=== PATIENT | female | born 1975 | race Caucasian/White ===

== ENCOUNTER → 2025-06-19 | Outpatient (CLI) | payer SELFPAY ==
--- NOTE | 2025-06-19 08:05 | ART_ITS ---
Reason For Study Reason For Study: Bilateral leg pain Procedure A bilateral lower extremity continuous wave Doppler with analog waveform analysis,segmental pressures,and ankle brachial indexes without exercise. Left Segmental Pressures Left brachial= 113mmHg. Left posterior tibial artery = 150mmHg. Left dorsalis pedis artery = 152mmHg. Left digit = 95 mmHg. The left dorsalis pedis waveforms are triphasic. The left posterior tibial artery waveforms are triphasic. Right Segmental Pressures Right brachial= 117mmHg. Right posterior tibial artery = 141mmHg. Right dorsalis pedis artery = 144mmHg. Right digit = 119 mmHg. The right dorsalis pedis waveforms are triphasic. The right posterior tibial artery waveforms are triphasic. Indices The right ankle brachial index by the dorsalis pedis is 1.23. The right ankle brachial index by the posterior tibial artery is 1.21. The right digital-brachial index is 1.02. The left ankle brachial index by the dorsalis pedis is 1.30. The left ankle brachial index by the posterior tibial artery is 1.28. The left digital-brachial index is 0.81. VL/Lower Ext Art Exam w/o Exercis Interpretation Summary Triphasic Doppler waveforms are noted at ankle level bilaterally. Pulse-volume recordings appear satisfactory at all levels bilaterally. Resting ankle-brachial indices are normal bilaterally. Digi tin-brachial indices are normal bilaterally. There is no evidence of significant arterial occlusive disease in the lower ext remities bilaterally. Ordering Physician: Maximino Beard Referring Physician: Jeremiah Cedeño Performed By: Lizbeth Craig RVT
--- NOTE | 2025-06-19 08:06 | VDLE_ITS ---
Reason For Study Reason For Study: Bilateral leg pain RIGHT LEFT GSV is normal. CFV is compressible, spontaneous, phasic, competent, CFV is compressible, spontaneous, phasic, competent and demonstrates normal augmentation. and demonstrates normal augmentation. FV is compressible, spontaneous, phasic, competent FV is compressible, spontaneous, phasic, competent and demonstrates normal augmentation. and demonstrates normal augmentation. POP V is compressible, spontaneous, phasic, competent POP V is compressible, spontaneous, phasic, competent and demonstrates normal augmentation. and demonstrates normal augmentation. T/P Trunk is compressible. T/P Trunk is compressible. PTV is compressible. PTV is compressible. LT PerV is compressible. RT PerV is compressible. SFJ is INCOMPETENT and measures 0.69 cm. Procedure GSV proximal thigh measures 0.79 x 0.76 cm. This is a venous duplex using B-mode, color flow and GSV above knee is INCOMPETENT for greater than 0.5 spectral Doppler. seconds. Exam performed in department. GSV at knee measures 0.16 x 0.17 cm. GSV below knee is competent. INCOMPETENT varicose vein noted at the dist thigh originating from the GSV that extends laterally down to the distal dean where wound is. VL/Venous Duplex US - Anam Extrem Interpretation Summary Deep veins of the lower extremities are bilaterally patent and compressible seg mentally. There is no evidence of deep vein thrombosis on either side. Valvular competence appears intact within the p roximal deep venous systems bilaterally. The great saphenous veins appear bilaterally patent and compressible segmentall y. The left sapheno-femoral junction is incompetent . The left great saphenous vein appears incompetent above the knee. The left great saphenous vein appears competent below the knee. An incompetent varicose vein originates from the left great saphenous vein in the distal thigh and courses distally and laterally across the pretibial surface to within proxi mity of the patient's wound. Ordering Physician: Maximino Beard Referring Physician: Jeremiah Cedeño Performed By: Lizbeth Craig RVT
== END | disposition home or self-care (01) ==
PROVIDERS: PCP Family Medicine; Referring Provider Podiatrist Foot & Ankle Surgery; Visit Provider Podiatrist Foot & Ankle Surgery
DX: M79.605 Pain in left leg (principal); M79.604 Pain in right leg; I73.89 Other specified peripheral vascular diseases
CPT/HCPCS: 93923; 93970

== ENCOUNTER 2025-10-11 06:57 | Day surgery (SDC) | payer OTHER, SELFPAY ==
[2025-10-11 07:19] VITALS: BMI 31.1
--- OUTSIDE RECORDS SUMMARY | 2025-10-11 07:23 | XMS RPT_ITS | CCD ---
Author Organization [facility] Care Team Providers Care [employer] Start Coordinator Name Role Phone LESLIE CUNHA, CATE Guevara Primary Care Physician Sharee CANDELARIO MD Unavailable TUAN NELSON MD Unavailable Sunitha MATHEW MD Unavailable EZ ALLEN MD Unavailable Keysha Zavaleta RN Unavailable Unavailable Unavailable Unavailable BRICE SPENCE MD Admitting Unavailable BRICE SPENCE MD Primary Care Unavailable BRICE SPENCE MD Attending Unavailable VADIM THOMAS Consulting Unavailable PROVIDER, UNKNOWN Consulting Unavailable PROVIDER, UNKNOWN Consulting Unavailable PROVIDER, UNKNOWN Consulting Unavailable TUAN NELSON Admitting Unavailable TUAN NELSON Primary Care Unavailable TUAN NELSON Attending Unavailable CATE NELSON MD Primary Care Unavailable MILAGROS CUNHA, DR ESPINOZA Attending Unavailable CATE NELSON MD Primary Care Unavailable MILAGROS CUNHA, DR ESPINOZA Attending Unavailable SERGIO CUNHA, ADRIANA Consulting Unavailable CATE NELSON MD Primary Care Unavailable CITLALY CUNHA, DR MISHA Beck Admitting Unavailable MARCELINA MITCHELL MD Attending Unavailab CATE Brower MD Consulting Unavailable LAURENT LUNDBERG MD Consulting Unavailable RAMU CUNHA, DR EVERT Milner Consulting Edith BLUNT MD, DR DIONNA Leija Consulting Unavailable CATE NELSON MD Primary Care Unavailable MILAGROS CUNHA, DR ESPINOZA Attending Unavailable Josy Auguste RN Unavailable Unavailable Chirag BILLYM, Dr. Stanton Attending Provider Chirag BILLYM, Dr. Stanton Referring Provider Leslie CUNHA, Dr. Daniels Primary Care Provider Chirag KATZ, Dr. Stanton Attending Physician Leslie CUNHA, Dr. Daniels Primary Care Physician Harvey CUNHA, Dr. Pedro Beck Attending Physician Leslie CUNHA, Dr. Daniels Referring Provider Komal Marquez Attending Physician Tuan Nelson Primary Care Unavailable Tuan Nelson Referring Unavailable Komal Bacon Attending Unavailable Evert Beard Attending Unavailable Evert Beard Referring Unavailable Tuan Nelson Primary Care Unavailable Lacho Salinas Referring Unavailable Tuan Nelson Primary Care Unavailable Lacho Salinas Attending Unavailable Medications Current Medications Medication Drug Class(es) Dates Sig (Normalized) Sig (Original) acetaminophen 650 mg oral tablet (1 source) Start: 04-03-2024 acetaminophen Dose : 650 mg =, Oral, q6hWA, PRN Pain, scale 1-10, 0 Refill(s) Start Date: 04/03/24 Status: Ordered Coenzyme Q10 (H2q Coq10) 200 mg/gram powder (1 source) Start: 07-23-2025 take 1 mg by mouth once Coenzyme Q10 (H2q Coq10) 200 mg/gram powder Active mg PO July 23, 2025 12:00am Complies with drug therapy DAILY MULTIPLE VITAMINS (Oral Tablet) (19 sources) take 1 tablet by mouth once daily DAILY MULTIPLE VITAMINS (Oral Tablet) ; 1 daily Digestive Enzymes capsule (1 source) Start: 07-23-2025 take 1 capsule by mouth once daily at mealtime Digestive Enzymes capsule Active 1 NMA PO daily July 23, 2025 12:00am administer with food; swallow whole; do not crush/chew/dissolve /break/cut Complies with drug therapy Multivitamin tablet (1 source) Start: 07-23-2025 Multivitamin tablet Active 1 {tbl} PO EVERY MORNING July 23, 2025 12:00am Complies with drug therapy Multivitamin With Minerals (One Daily Plus Minerals) tablet (1 source) Start: 07-23-2025 take 1 tablet by mouth once daily Multivitamin With Minerals (One Daily Plus Minerals) tablet Active 1 {tbl} PO ONCE July 23, 2025 12:00am Complies with drug therapy nutraview (1 source) Start: 07-23-2025 nutraview Active PO July 23, 2025 12:00am Complies with drug therapy Damon-3 Fatty Acids 1,000 mg capsule (1 source) Start: 07-23-2025 take 1 capsule by mouth once daily Damon-3 Fatty Acids 1,000 mg capsule Active 1000 mg PO daily July 23, 2025 12:00am Complies with drug therapy pantoprazole 40 mg delayed release oral tablet (1 source) Proton Pump Inhibitor Start: 04-03-2024 pantoprazole 40 mg oral enteric coated tablet Dose : 40 mg = 1 tab(s), Oral, BIDAC, # 60 tab(s), 0 Refill(s), Pharmacy: [facility], 157, cm, 04/01/24 18:58:00 EDT, Height, kg, 04/01/24 18:58:00 EDT, Dosing Weight Start Date: 04/03/24 Status: Ordered saccharomyces boulardii 250 mg oral capsule (1 source) Start: 07-23-2025 take 1 capsule by mouth twice daily Saccharomyces Boulardii (Daily Probiotic (S. Boulardii)) 250 mg capsule Active 250 mg PO TWICE A DAY July 23, 2025 12:00am Complies with drug therapy Completed/Discontinued Medications Medication Drug Class(es) Dates Sig (Normalized) Sig (Original) albuterol 0.83 mg/ml inhalation solution (19 sources) beta2-Adrenergic Agonist Start: 03-03-2013 End: 03-10-2013 ALBUTEROL SULFATE, (2.5 MG/3ML)0.083% (Inhalation Nebulization Solution) ; 1 (one) Ampule(s) every four hours, as needed for 7 days Quantity: 30 {ampule(s)} Refills: 0 Ordered: 10-Mar-2016 MD EZ ALLEN Start: 03-Mar-2013 End: 10-Mar-2013 Status: Inactive Comments: Medication taken as needed. Comment on above: Medication taken as needed. azithromycin 250 mg oral tablet (19 sources) Macrolide Antimicrobial Start: 03-03-2013 End: 03-08-2013 AZITHROMYCIN, 250MG (Oral Tablet) ; 2 x 1 then 1 x 4 Tablet daily for 5 days Quantity: 1 {Tablet} Refills: 0 Ordered: 03-Mar-2013 MD TIFFANY EZ Ingram Start: 03-Mar-2013 End: 08-Mar-2013 Status: Inactive Comments: take two tablets day one and then one tablet daily for 4 daysmeds to be dispensed in office Comment on above: take two tablets day one and then one tablet daily for 4 daysmeds to be dispensed in office cephalexin 500 mg oral capsule (19 sources) Cephalosporin Antibacterial Start: 11-03-2022 End: 11-13-2022 take 1 capsule by mouth three times daily cephALEXin 500 mg oral capsule ; 1 (one) Capsule tid for 10 days Quantity: 40 {Capsule} Refills: 0 Ordered: 03-Nov-2022 MD Sharee CANDELARIO Start: 03-Nov-2022 End: 13-Nov-2022 Status: Inactive codeine phosphate 2 mg/ml / guaiFENesin 20 mg/ml oral solution (19 sources) Opioid Agonist Start: 12-14-2011 End: 12-21-2011 take 1 [tsp_us] by mouth every four hours as needed for cough GUIATUSS AC, 100-10MG/5ML (Oral Syrup) ; 1 (one) tsp every four hours as needed for cough for 7 days Quantity: 4 {oz} Refills: 0 Ordered: 03-Mar-2013 MD Sharee CANDELARIO Start: 14-Dec-2011 End: 21-Dec-2011 Status: Inactive Comments: Medication taken as needed. Comment on above: Medication taken as needed. mupirocin 0.02 mg/mg topical ointment (19 sources) RNA Synthetase Inhibitor Antibacterial Start: 11-03-2022 End: 12-03-2022 mupirocin 2 % topical ointment ; 1 (one) application bid for 30 days Quantity: 15 {Gram} Refills: 0 Ordered: 11-Apr-2024 MD Sharee CANDELARIO Start: 03-Nov-2022 End: 03-Dec-2022 Status: Inactive triamcinolone acetonide 5 mg/ml topical cream (19 sources) Corticosteroid Start: 11-22-2018 End: 12-22-2018 Triamcinolone Acetonide 0.5 % External Cream ; 1 (one) Application daily to bid prn itchiness of leg lesion for 30 days Quantity: 1 {Tube} Refills: 0 Ordered: 16-May-2019 MD Sharee CANDELARIO Start: 22-Nov-2018 End: 22-Dec-2018 Status: Inactive Problems Active Problems Problem Classification Problem Date Documented Date Episodic/Chronic Acute bronchitis (20 sources) Acute bronchitis; Translations: [Acute bronchitis, unspecified] 03-03-2013 Episodic Acute posthemorrhagic anemia (20 sources) Acute posthemorrhagic anemia; Translations: [Acute posthemorrhagic anemia] 04-13-2024 Episodic Administrative/social admission (20 sources) Patient encounter status; Translations: [Counseling, unspecified] 11-22-2018 Episodic Chronic ulcer of skin (3 sources) Ulcer of limb due to chronic venous insufficiency; Translations: [Non-pressure chronic ulcer of skin of other sites with unspecified severity] Onset: 08-31-2025 08-09-2025 Chronic Other connective tissue disease (1 source) Pain in right lower limb; Translations: [Pain in right leg] 07-23-2025 Episodic Other connective tissue disease (1 source) Pain in left lower limb; Translations: [Pain in left leg] 07-23-2025 Episodic Other connective tissue disease (1 source) Pain in right leg; Translations: [Pain in right leg] Onset: 06-25-2025 Episodic Other diseases of veins and lymphatics (19 sources) Venous stasis; Translations: [Other specified disorders of veins] 11-22-2018 Episodic Other diseases of veins and lymphatics (2 sources) Vascular insufficiency; Translations: [Venous insufficiency (chronic) (peripheral)] 08-09-2025 Episodic Comment on above: Venous reflux study 06/20/25:- L SFJ, GSV above knee, and noted varicosity originating from GSV and tracking to location of wound Other diseases of veins and lymphatics (1 source) Venous insufficiency (chronic) (peripheral); Translations: [Venous insufficiency (chronic) (peripheral)] Onset: 08-31-2025 Episodic Peripheral and visceral atherosclerosis (1 source) Peripheral vascular disease; Translations: [Peripheral vascular disease, unspecified] 07-23-2025 Chronic Pneumonia (except that caused by tuberculosis or sexually transmitted disease) (20 sources) Bronchopneumonia; Translations: [Bronchopneumonia, unspecified organism] 12-14-2011 Episodic Skin and subcutaneous tissue infections (19 sources) Cellulitis of face; Translations: [Cellulitis of face] 11-22-2018 Episodic Unclassified (16 sources) LAB DRAW - The labs drawn today include: BMP and CBC. The lab was drawn from the left antecubital vein. The lab was ordered by ___ (Dr. Dionna Blunt). fax #: [phone]. 04-13-2024 Unclassified (10 sources) LAB DRAW - The labs drawn today include: CBC. The lab was drawn from the left antecubital vein. The lab was ordered by ___ (Dr. Blunt). fax #: [phone]. 08-14-2024 Varicose veins of lower extremity (20 sources) Varicose veins of lower extremity; Translations: [Varicose veins of bilateral lower extremities with other complications] 11-03-2022 Episodic Past or Other Problems Problem Classification Problem Date Documented Da te Episodic/Chronic Unclassified (19 sources) open area on left ankle area. - no injury. Open area for 3 weeks. Redness 11-03-2022 Unclassified (19 sources) Rash - The onset of the rash has been acute and has been occurring for 2 days. The rash was first seen on the face (below left eye). There has been associated itching. Note for Rash: Skin is swollen and warm. Here for exam. 11-22-2018 Unclassified (12 sources) Ankle Pain - Symptoms include ankle pain (open area on lateral left ankle), redness and warmth. Onset was 2 month(s) ago (bumped leg with milker bucket). Note for Ankle pain: C/O burning around open area and soreness. 07-08-2018 Unclassified (12 sources) [ADDITIONAL REASON] Immunization - Immunizations discussed with patient/ parent: yes. Note for For immmunization: Not up to date 07-08-2018 Unclassified (19 sources) cough - The onset of the cough has been acute and has been occurring in a persistent pattern for 5 days. The cough is characterized as dry. The symptoms have been associated with sore throat. 03-03-2013 Unclassified (19 sources) cough - The onset of the cough has been sudden and has been occurring in a persistent pattern for 1 week. The course has been increasing. The symptoms have been associated with fever, headache, hoarseness and runny nose. Note for cough: Here for exam. Notes harsh cough at home for last week or so. No NVD. No high fevers at home. 12-14-2011 Unclassified (7 sources) Immunization - Immunizations discussed with patient/ parent: yes. Note for For immmunization: Not up to date 07-08-2018 Unclassified (7 sources) [ADDITIONAL REASON] Ankle Pain - Symptoms include ankle pain (open area on lateral left ankle), redness and warmth. Onset was 2 month(s) ago (bumped leg with milker bucket). Note for Ankle pain: C/O burning around open area and soreness. 07-08-2018 Results Test Name Value Interpretation Reference Range Facility MR/Rylee 08-09-2025 MR/MARIANGEL [facility] Vascular Surgery [address] [place] [address]. [address] [place] [address] OFFICE VISIT Date of Service: 08/09/25 MR#: [id number] Acct: [id number] Name: SAÚLFREEMAN A Rep #: [id number] : 1975 Provider: CARLOS Dyer Age/Sex: 49/F Location: [facility] Status: Signed Intake Vital Signs 08/09/25 08:53 Weight: 179 lb BP 115/68 Blood Pressure Location Lt brachial Position Sitting Respiration 16 Pulse 67 Pulse Source Monitor Temp 98 F Temp Source Temporal Pulse Oximetry (%) 100 Oxygen Delivery Method room air Intake Visit Reasons: Peripheral vascular disease/Rt Leg Pain Chief Complaint: establish care Is patient in pain?: No Allergies No Known Allergies Allergy (Verified 08/09/25 08:55) Medications ???Medication ???Instructions ???Recorded ???Confirmed ???Type Saccharomyces boulardii 250 mg 250 mg PO BID 07/23/25 08/09/25 Hi story capsule (Daily Probiotic (S. boulardii)) coenzyme Q10 200 mg/gram oral mg PO 07/23/25 08/09/25 History powder (H2Q CoQ10) digestive enzymes 1 cap PO QDAY 07/23/25 08/09/25 Hi story multivitamin 1 tab PO QAM 07/23/25 08/09/25 His tory multivitamin with minerals (One 1 tab PO ONCE 07/23/25 08/09/25 Hi story Daily Plus Minerals tablet) nutraview PO 07/23/25 08/09/25 History omega-3 fatty acids 1,000 mg 1,000 mg PO QDAY 07/23/25 08/09/25 History capsule Is last menstrual period known: Yes Post menopausal: No Patient : No Have you fallen in the past year?: No PFSH Medical History (Updated 08/09/25 @ 09:35 by CARLOS Dyer) Ulcer ( 04/2024) PVD (peripheral vascular disease) Pain in right leg Pain in left leg Family History (Updated 08/09/25 @ 08:52 by Cary Beck) Other CVA (cerebral vascular accident) Social History (Updated 08/09/25 @ 08:53 by Cary Beck) Smoking Status: Never smoker HPI HPI HPI: FREEMAN HAYS, is a 49 F who presents to the office today as referred by podiatry Dr. Beard to discuss recent abnormal venous reflux study and LLE ulceration. She had a normal arterial study. She has an ulceration to her anterolateral L ankle; she reports it has been present several months and was unprovoked. She has had several prior similar ulcerations, all in a similar location on her LLE. She does have varicose veins, reports these have been present many years and themselves are not bothersome. She notices only mild edema. She denies any history of prior DVT or venous interventions. She wears tubigrips for compression and has been for the last couple months. She elevates her legs frequently throughout the day and otherwise stays active. ROS General General: No weight change, appetite, fatigue, colon cancer, breast cancer or weakness HEENT HEENT: No difficulty swallowing, eye injury, eye surgery, swollen glands or hoarseness Endo Endocrine: No thyroid disease, diabetes mellitus, thyroid cancer, Hair loss, heat intolerance or cold intolerance Skin Skin: No rash or changing moles Musc Musculoskeletal: No back problems, arthritis, rheumatoid arthritis, gout or joint pain Cardio Cardiovascular: No murmur, pacemaker, heart disease, atrial fibrillation, high blood pressure, heart attack, heart stent, palpitations, shortness of breath with exertion or chest pain Psych Psychiatric: No depression, anxiety or hearing voices Resp Respiratory: No shortness of breath, No sleep apnea, No cough, No COPD, No asthma, No emphysema and No wheezing Gastro Gastrointestinal: No abdominal pain, No nausea or vomiting, No diarrhea, No constipation, No blood in stool, No acid reflux, No hemorrhoids, No ulcers, No gallbladder problem and No black,tarry stools Nehemiah Hematologic: No blood thinners, No blood disorders, No bleeding, No anemia and No blood clots Neuro Neurologic: No system reviewed and no additional complaints, except as documented, No as per HPI, No abnormal gait, No abnormal hearing, No abnormal movements, No abnormal speech, No behavioral changes, No burning sensations, No confusion, No convulsions, No disequilibrium, No dizziness, No localized weakness, No frequent falls, No headache(s), No lack of coordination, No loss of vision, No memory loss, No numbness, No other visual disturbances, No radicular pain, No restless legs, No sensory deficit, No syncope, Yes tingling, No tremor(s), No weakness and No other Exam Const General: cooperative, healthy appearing, comfortable and no acute distress Orientation: alert, awake and oriented x3 HENMT Head: normocephalic and atraumatic Ears: hearing grossly normal bilaterally and external ears normal Nose: external nose normal Eyes General: appearance normal, both eyes and all related structures Neck Neck: normal visual inspectio (more content not included)... Normal [facility] Venous duplex ultrasound rep ortOrdered By: Pedro Gabriel on 06-20-2025 US Vein [facility] [address] [place] [id number] Venous Duplex US - Anam Extrem 06/19/2516 MR#: [id number] Acct: [id number] Name: FREEMAN HAYS Rep #:[id number] : 1975 49 From: Pedro Gabriel MD Attending Dr: Dr. Evert Beard DPM Status: REG CLI Ordering Dr: Evert Beard DPM Date: 06/19/25 Location: [facility] Sex: F C Admitted: Reason For Study Reason For Study: Bilateral leg pain RIGHT LEFT GSV is normal. CFV is compressible, spontaneous, phasic, competent, CFV is compressible, spontaneous, phasic, competent and demonstrates normal augmentation. and demonstrates normal augmentation. FV is compressible, spontaneous, phasic, competent FV is compressible, spontaneous, phasic, competent and demonstrates normal augmentation. and demonstrates normal augmentation. POP V is compressible, spontaneous, phasic, competent POP V is compressible, spontaneous, phasic, competent and demonstrates normal augmentation. and demonstrates normal augmentation. T/P Trunk is compressible. T/P Trunk is compressible. PTV is compressible. PTV is compressible. LT PerV is compressible. RT PerV is compressible. SFJ is INCOMPETENT and measures 0.69 cm. Procedure GSV proximal thigh measures 0.79 x 0.76 cm. This is a venous duplex using B-mode, color flow and GSV above kneeis INCOMPETENT for greater than 0.5 spectral Doppler. seconds. Exam performed in department. GSV at knee measures 0.16 x 0.17 cm. GSV below kneeis competent. INCOMPETENT varicose vein noted at the dist thigh originating from the GSV that extends laterally down to the distal dean where wound is. VL/Venous Duplex US - Anam Extrem Interpretation Summary Deep veins of the lower extremities are bilaterally patent and compressible segmentally. There is no evidence of deep vein thrombosis on either side. Valvular competence appears intact within the proximal deep venous systems bilaterally. The great saphenous veins appear bilaterally patent and compressible segmentally. The left sapheno-femoral junction is incompetent . The left great saphenous vein appears incompetent above the knee. The left great saphenous vein appears competent below the knee. An incompetent varicose vein originates from the left great saphenous vein in the distal thigh and courses distally and laterally across the pretibial surface to within proximity of the patient's wound. Ordering Physician: Evert Beard Referring Physician: Tuan Nelson Performed By: Lizbeth Craig RVT 06/20/25 2844 Date _ Pedro Gabriel MD CC: DPM Dr. Evert Beard; Dr. Tuan Nelson MD ~ Date Dictated: 06/19/25815 Date Transcribed: 06/20/25 1868 Exhauster Engineer: Signed [facility] Other Arterial study reportOrdered By: Pedro Gabriel on 06-19-2025 Noninvasive arteriosclerosis study report [facility] [address] [place] [address] Lower Ext Art Exam w/o Exercis 06/19/25 0808 MR#: [id number] Acct: [id number] Name: FREEMAN HAYS Rep #:[id number] : 1975 49 From: Pedro Gabriel MD Attending Dr: Dr. Evert Beard DPM Status: REG CLI Ordering Dr: Evert Beard DPM Date: 06/19/25 Location: [facility] Sex: F C Admitted: Reason For Study Reason For Study: Bilateral leg pain Procedure A bilateral lower extremity continuous wave Doppler with analog waveform analysis,segmental pressures,and ankle brachial indexes without exercise. Left Segmental Pressures Left brachial= 113mmHg. Left posterior tibial artery = 150mmHg. Left dorsalis pedis artery = 152mmHg. Left digit = 95 mmHg. The left dorsalis pedis waveforms are triphasic. The left posterior tibialartery waveforms are triphasic. Right Segmental Pressures Right brachial= 117mmHg. Right posterior tibial artery = 141mmHg. Right dorsalispedis artery = 144mmHg. Right digit = 119 mmHg. The right dorsalis pedis waveforms are triphasic. The right posterior tibial artery waveforms are triphasic. Indices The right ankle brachial index by the dorsalis pedis is 1.23. The right ankle brachial index by the posterior tibial artery is 1.21. The right digital-brachial index is 1.02. The left ankle brachial index by the dorsalis pedis is 1.30. The left ankle brachial index by the posterior tibial artery is 1.28. The left digital-brachial index is 0.81. VL/Lower Ext Art Exam w/o Exercis Interpretation Summary Triphasic Doppler waveforms are noted at ankle level bilaterally. Pulse-volume recordings appear satisfactory at all levels bilaterally. Resting ankle-brachial indices are normal bilaterally. Digital-brachial indices are normal bilaterally. There is no evidence of significant arterial occlusive disease in the lower extremities bilaterally. Ordering Physician: Evert Beard Referring Physician: Tuan Nelson Performed By: Lizbeth Craig David 06/19/252134 Date _ Pedro Gabriel MD CC: DPM Dr. Evert Beard; Dr. Tuan Nelson MD ~ Date Dictated: 06/19/25807 Date Transcribed: 06/19/252134 Exhauster Engineer: Signed [facility] Other Lower Ext Art Exam w/o Exerc zaira 06-19-2025 Lower Ext Art Exam w/o Exercis [facility] Cardi[facility] [address] [facility] [place] [address] Lower Ext Art Exam w/o Exercis 06/19/25 08 MR#: [id number] Acct: [id number] Name: FREEMAN HAYS Rep #: [id number] : 1975 49 From: Pedro Gabriel MD Attending Dr: Dr. Evert Beard DPM Status: RE G CLI Ordering Dr: Evert Beard DPM Date: 06/19/25 Location: [facility] Sex: F C Admitted: Reason For Study Reason For Study: Bilateral leg pain Procedure A bilateral lower extremity continuous wave Doppler with analog waveform analysis,segmental pressures,and ankle brachial indexes without exercise. Left Segmental Pressures Left brachial= 113mmHg. Left posterior tibial artery = 150mmHg. Left dorsalis pedis artery = 152mmHg. Left digit = 95 mmHg. The left dorsalis pedis waveforms are triphasic. The left posterior tibial artery waveforms are triphasic. Right Segmental Pressures Right brachial= 117mmHg. Right posterior tibial artery = 141mmHg. Right dorsalis pedis artery = 144mmHg. Right digit = 119 mmHg. The right dorsalis pedis waveforms are triphasic. The right posterior tibial artery waveforms are triphasic. Indices The right ankle brachial index by the dorsalis pedis is 1.23. The right ankle brachial index by the posterior tibial artery is 1.21. The right digital-brachial index is 1.02. The left ankle brachial index by the dorsalis pedis is 1.30. The left ankle brachial index by the posterior tibial artery is 1.28. The left digital-brachial index is 0.81. VL/Lower Ext Art Exam w/o Exercis Interpretation Summary Triphasic Doppler waveforms are noted at ankle level bilaterally. Pulse-volume recordings appear satisfactory at all levels bilaterally. Resting ankle-brachial indices are normal bilaterally. Digital-brachial indices are normal bilaterally. There is no evidence of significant arterial occlusive disease in the lower extremities bilaterally. Ordering Physician: Evert Beard Referring Physician: Tuan Nelson Performed By: Lizbeth Craig RVT 06/19/252134 Date Pedro Gabriel MD CC: DPMalu Beard; Dr. Tuan Nelson MD Date Dictated: 06/19/25807 Date Transcribed: 06/19/252134 Exhauster Engineer: Signed [facility] Venous Duplex US - Anam [facility] 06-19-2025 Venous Duplex US - Anam Extrem [facility] [address] [place] [address] Venous Duplex US - Anam Extrem 06/19/25 0816 MR#: [id number] Acct: [id number] Name: FREEMAN HAYS Rep #: [id number] : 1975 49 From: ePdro Gabriel MD Attending Dr: Dr. Evert Beard, DPMalu Status: RE G CLI Ordering Dr: Evert Beard DPMalu Date: 06/19/25 Location: CVS Sex: F C Admitted: Reason For Study Reason For Study: Bilateral leg pain RIGHT LEFT GSV is normal. CFV is compressible, spontaneous, phasic, competent, CFV is compressible, spontaneous, phasic, competent and demonstrates normal augmentation. and demonstrates normal augmentation. FV is compressible, spontaneous, phasic, competent FV is compressible, spontaneous, phasic, competent and demonstrates normal augmentation. and demonstrates normal augmentation. POP V is compressible, spontaneous, phasic, competent POP V is compressible, spontaneous, phasic, competent and demonstrates normal augmentation. and demonstrates normal augmentation. T/P Trunk is compressible. T/P Trunk is compressible. PTV is compressible. PTV is compressible. LT PerV is compressible. RT PerV is compressible. SFJ is INCOMPETENT and measures 0.69 cm. Procedure GSV proximal thigh measures 0.79 x 0.76 cm. This is a venous duplex using B-mode, color flow and GSV above knee is INCOMPETENT for greater than 0.5 spectral Doppler. seconds. Exam performed in department. GSV at knee measures 0.16 x 0.17 cm. GSV below knee is competent. INCOMPETENT varicose vein noted at the dist thigh originating from the GSV that extends laterally down to the distal dean where wound is. VL/Venous Duplex US - Anam Extrem Interpretation Summary Deep veins of the lower extremities are bilaterally patent and compressible segmentally. There is no evidence of deep vein thrombosis on either side. Valvular competence appears intact within the proximal deep venous systems bilaterally. The great saphenous veins appear bilaterally patent and compressible segmentally. The left sapheno- femoral junction is incompetent . The left great saphenous vein appears incompetent above the knee. The left great saphenous vein appears competent below the knee. An incompetent varicose vein originates from the left great saphenous vein in the distal thigh and courses distally and laterally across the pretibial surface to within proximity of the patient's wound. Ordering Physician: Evert Beard Referring Physician: Tuan Nelson Performed By: Lizbeth Craig RVT 06/20/252336 Date Pedro Gabriel MD CC: DPM Dr. Evert Beard; Dr. Tuan Nelson MD Date Dictated: 06/19/25815 Date Transcribed: 06/20/252336 Exhauster Engineer: Signed Normal [facility] - Hematology and Cell countson 08-14-2024 Basophils (Bld) [#/Vol] 0.0 10*3/uL Normal 0.0 - 0.2 {x10E3/uL} [facility]. Work Phone: Basophils/100 WBC (Bld) 0 % Normal [facility]. Work Phone: Eosinophils (Bld) [#/Vol] 0.1 10*3/uL Normal 0.0 - 0.4 {x10E3/uL} [facility]. Work Phone: Eosinophils/100 WBC (Bld) 1 % Normal [facility]; [facility] [employer] [facility] Work Phone: Erythrocyte distribution width (RBC) [Ratio] 13.2 % Normal 11.7 - 15.4 % [facility]; [facility] Work Phone: Hematocrit (Bld) [Volume fraction] 36.8 % Normal 34.0 - 46.6 % [facility]; [facility] [employer] [facility] Work Phone: Hemoglobin (Bld) [Mass/Vol] 11.9 g/dL Normal 11.1 - 15.9 g/dL [facility]; [facility] [employer] [facility] Work Phone: Immature granulocytes (Bld) [#/Vol] 0.0 10*3/uL Normal 0.0 - 0.1 {x10E3/uL} [facility]; [facility] [employer] [facility] Work Phone: Immature granulocytes/100 WBC (Bld) 0 % Normal [facility]; [facility] [employer] [facility] Work Phone: Lymphocytes (Bld) [#/Vol] 1.5 10*3/uL Normal 0.7 - 3.1 {x10E3/uL} [facility]; [facility] [employer] [facility] Work Phone: Lymphocytes/100 WBC (Bld) 27 % Normal [facility]; [facility] [employer] [facility] Work Phone: MCH (RBC) [Entitic mass] 28.2 pg Normal 26.6 - 33.0 pg [facility]; [facility] [employer] [facility] Work Phone: MCHC (RBC) [Mass/Vol] 32.3 g/dL Normal 31.5 - 35.7 g/dL [facility]; [facility]. Work Phone: MCV (RBC) [Entitic vol] 87 fL Normal 79 - 97 fL [facility].; [employer] [facility]. Work Phone: Monocytes (Bld) [#/Vol] 0.5 10*3/uL Normal 0.1 - 0.9 {x10E3/uL} [facility] [employer] [facility].; [employer] [facility] [employer] [facility]. Work Phone: Monocytes/100 WBC (Bld) 10 % Normal [facility] [employer] [facility].; [employer] [facility]. Work Phone: Neutrophils (Bld) [#/Vol] 3.4 10*3/uL Normal 1.4 - 7.0 {x10E3/uL} [facility] [employer].; [employer] [facility]. Work Phone: Neutrophils/100 WBC (Bld) 62 % Normal [facility].; [employer] [facility]. Work Phone: Platelets (Bld) [#/Vol] 246 10*3/uL Normal 150 - 450 {x10E3/uL} [facility] [employer].; [employer] [facility] [employer]. Work Phone: RBC (Bld) [#/Vol] 4.22 10*6/uL Normal 3.77 - 5.2 8 {x10E6/uL} [facility] [employer].; [employer] [facility] [employer], [employer]. Work Phone: WBC (Bld) [#/Vol] 5.5 10*3/uL Normal 3.4 - 10.8 {x10E3/uL} [facility] [employer].; [employer] [facility] [employer] [facility], [employer]. Work Phone: BMP with eGFRon 04-13-2024 AGE 48 years Normal [facility] Comment on above: Performed By: #### 2 15809 #### [facility],[address] [place] [address] Anion gap [Moles/Vol] 11 mmol/L Normal 10 - 2 0 mmol/L [facility].; [facility] Comment on above: Performed By: #### 2 37139 #### [facility],[address] [place] [address] BMP with eGFR Normal [facility] Comment on above: Result Comment: BASI C METABOLIC PANEL Performed By: #### 2 05373 #### [facility],[address] [place] [address] Calcium [Mass/Vol] 8.7 mg/dL Normal 8.5 - 10. 1 mg/dL [facility], [facility].; [facility] Comment on above: Performed By: #### 2 18472 #### [address] [address] Chloride [Moles/Vol] 103 mmol/L Normal 98 - 10 7 mmol/L [facility].; [facility] Comment on above: Performed By: #### 2 26064 #### [address] [address] CO2 [Moles/Vol] 28.4 mmol/L Normal 21.0 - 32.0 mmol/L [facility], [facility].; [facility] Comment on above: Performed By: #### 2 68294 #### [address] [address] Creatinine [Mass/Vol] 0.88 mg/dL Normal 0.55 - 1.02 mg/dL [facility], [facility].; [facility] Comment on above: Performed By: #### 2 51708 #### [address] [address] GFR/1.73 sq M.predicted among non-blacks MDRD (S/P/Bld) [Vol rate/Area] mL/min/{1.73_m2} Normal 60 - 999 [facility] Comment on above: Performed By: #### 2 83408 #### [facility],[address] [place] [address] Result Comment: ACCO RDING TO THE NATIONAL KIDNEY DISEASE EDUCATION PROGRAM(NKDE), A NORMAL eGFR IS A VALUE GREATER THAN OR EQUAL TO 60 ML/MIN/1.73 SQ METERS. CHRONIC KIDNEY DISEASE: <60mL/MIN/1.73 SQ METERS KIDNEY FAILURE: <15mL/MIN/1.73 SQ METERS THIS TEST SHOULD ONLY BE USED FOR PATIENTS 18 YEARS OF AGE AND OLDER. Glucose [Mass/Vol] 94 mg/dL Normal 74 - 106 mg/dL [facility].; [facility], [facility]. Comment on above: Performed By: #### 2 27482 #### [place] [id number] Potassium [Moles/Vol] 4.2 mmol/L Normal 3.5 - 5.1 mmol/L [facility].; [facility], [facility]. Comment on above: Performed By: #### 2 47769 #### [place] [id number] Sodium [Moles/Vol] 138 mmol/L Normal 136 - 145 mmol/L [facility].; [facility], [facility]. Comment on above: Performed By: #### 2 12151 #### [place] [id number] Urea nitrogen [Mass/Vol] 8 mg/dL Normal 7 - 18 mg/dL [facility].; [facility], [facility]. Comment on above: Performed By: #### 2 53699 #### [place] [address]6554 CBC + DIFFon 04-13-2024 Baso # 0.01 x10EE3/UL Normal 0.00 - 0.10 [facility] Comment on above: Performed By: #### 2 61870 #### [place] [address] Basophils/100 WBC (Bld) 0.2 % Normal 0.0 - 2.0 % [facility] Comment on above: Performed By: #### 2 80124 #### [place] [address] CBC + DIFF Normal [facility] Comment on above: Result Comment: CBC- COMPLETE BLOOD COUNT Performed By: #### 2 05002 #### [place] [address] EO # 0.11 x10EE3/UL Normal 0.00 - 0.50 [facility] Comment on above: Performed By: #### 2 48066 #### [place] [address] Eosinophils/100 WBC (Bld) 2.5 % Normal 0.0 - 7.0 % [facility] Comment on above: Performed By: #### 2 11426 #### [place] [address] Erythrocyte distribution width (RBC) [Ratio] 15.2 % Normal 12.0 - 15.6 % [facility] Comment on above: Performed By: #### 2 52418 #### [place] [address] Hematocrit (Bld) [Volume fraction] 26.1 % Abnormal 34.0 - 46.0 % [facility] Comment on above: Performed By: #### 2 73352 #### [place] [address] Hemoglobin (Bld) [Mass/Vol] 8.4 g/dL Abnormal 12.0 - 16.0 g/dL [facility].; [facility], [facility]. Comment on above: Performed By: #### 2 62821 #### [place] [address] Lymph # 1.28 x10EE3/UL Normal 0.80 - 2.80 [facility] Comment on above: Performed By: #### 2 05961 #### [place] [address] Lymphocytes/100 WBC (Bld) 29.5 % Normal 20.0 - 45.0 % [facility].; [facility], [facility]. Comment on above: Performed By: #### 2 13037 #### [place] [address] MANUAL DIFF N/A Normal [facility].; [facility] Comment on above: Performed By: #### 2 15624 #### [place] [address] MCH (RBC) [Entitic mass] 28 pg Normal 27 - 33 pg [facility].; [facility], [facility]. Comment on above: Performed By: #### 2 27018 #### [place] [address] MCHC 32 X10 3 Normal 32 - 36 [facility] Comment on above: Performed By: #### 2 59045 #### [place] [id number] MCV (RBC) [Entitic vol] 88 fL Normal 80 - 99 fL [facility].; [facility], [facility]. Comment on above: Performed By: #### 2 45553 #### [place] [address] [place] # 0.36 x10EE3/UL Normal 0.20 - 1.00 [facility] Comment on above: Performed By: #### 2 87962 #### [address] [address] MONOS % 8.4 % Normal 0.0 - 10.0 [facility] Comment on above: Performed By: #### 2 42353 #### [place] [address] Morphology Donald (Bld) [Interp] N/A Normal [facility].; [facility], [facility]. Comment on above: Performed By: #### 2 00991 #### [place] [address] Neut # 2.59 x10EE3/UL Normal 1.50 - 7.10 [facility] Comment on above: Performed By: #### 2 43529 #### [place] [address] Neutrophils/100 WBC (Bld) 59.5 % Normal 46.0 - 76.0 % [facility].; [facility]. Comment on above: Performed By: #### 2 06434 #### [place] [address] PLATELET 298 x10EE3/UL Normal 150 - 450 [facility] Comment on above: Performed By: #### 2 18013 #### [place] [address] Platelet mean volume (Bld) [Entitic vol] 7.9 fL Normal 6.6 - 10.5 fL [facility].; [facility], [facility]. Comment on above: Result Comment: AUTO MATED DIFFERENTIAL Performed By: #### 2 31843 #### [place] [address] RBC 2.96 x 10EE6/UL Low 4.10 - 5.30 [facility] Comment on above: Performed By: #### 2 05079 #### [facility],[address] [place] [address] WBC 4.4 x 10EE3/UL Low 4.5 - 10.8 [facility] Comment on above: Performed By: #### 2 64044 #### [facility],[address] [place] [address] Laboratory - Chemistry and C hemistry - challengeon 04-13-2024 GFR/1.73 sq M.predicted among blacks MDRD (S/P/Bld) [Vol rate/Area] mL/min/{1.73_m2} Normal 60 - 999 {ML/MINUTE} [employer] [facility], [employer] [facility] [employer] [facility] [employer] GFR/1.73 sq M.predicted MDRD (S/P/Bld) [Vol rate/Area] mL/min/{1.73_m2} Normal 60 - 999 {ML/MINUTE} [employer], [employer].; [employer] Laboratory - Hematology and Cell countson 04-13-2024 Basophils (Bld) [#/Vol] 0.01 {x10EE3/UL} Normal 0.00 - 0.10 {x10EE3/UL} [employer], [employer].; [facility] [employer] [facility] [employer] Eosinophils (Bld) [#/Vol] 0.11 {x10EE3/UL} Normal 0.00 - 0.50 {x10EE3/UL} [employer] Lymphocytes (Bld) [#/Vol] 1.28 {x10EE3/UL} Normal 0.80 - 2.80 {x10EE3/UL} [employer], [employer].; [employer] [facility] MCHC (RBC) [Mass/Vol] 32 {X10_3} Normal 32 - 3 6 {X10_3} [employer], [employer] [facility] [employer] [facility] Monocytes (Bld) [#/Vol] 0.36 {x10EE3/UL} Normal 0.20 - 1.00 {x10EE3/UL} [employer] [facility] [employer]. Monocytes/100 WBC (Bld) 8.4 % Normal 0.0 - 10.0 % [facility] [employer] [facility] [employer], [employer]. Neutrophils (Bld) [#/Vol] 2.59 {x10EE3/UL} Normal 1.50 - 7.10 {x10EE3/UL} [employer] [facility] [employer], [employer]. Platelets (Bld) [#/Vol] 298 {x10EE3/UL} Normal 150 - 450 {x10EE3/UL} [employer] [facility] [employer], [employer]. RBC (Bld) [#/Vol] 2.96 {x_10EE6/UL} Abnormal 4.10 - 5.30 {x_10EE6/UL} [employer] [facility] [employer], [employer]. WBC (Bld) [#/Vol] 4.4 {x_10EE3/UL} Abnormal 4.5 - 10.8 {x_10EE3/UL} [employer] [facility] [employer], [employer]. No Panel Informationon 04-13 AGE 48 {years} Normal [employer], [employer]. BMP with eGFR Normal [employer] [facility] [employer], [employer]. CBC + DIFF Normal [employer], [employer]. Final Surgical Pathology Rep [facility] 04-05-2024 Final Surgical Pathology Report . Pathology Reports Accession: Collected Date/Time: Received Date/Time: Pathologist: [id number] 04/03/2024 14:24 EDT 04/04/2024 08:17 EDT MD TOSHIA BEY Final Surgical Pathology Report DIAGNOSIS: STOMACH, BIOPSY: - MILD CHRONIC GASTRITIS - NEGATIVE FOR H. PYLORI CLINICAL INFORMATION: Procedure: EGD WITH GASTRIC BIOPSY USING ANESTHESIA _ Preoperative diagnosis: HEMATEMESIS Postoperative diagnosis: SAME SPECIMEN: A GASTRIC BIOPSY GROSS DESCRIPTION: All parts labelled with patient name and [id number] Received in formalin labeled gastric biopsy are 3 christianson tissue fragments measuring 0.2 to 0.3 cm. TS-1 Cyndy Caldwell, Grossing Record Clerk Salesperson/ Dr. Jai Tang, Pathologist Dictated by Cyndy Caldwell MICROSCOPIC DESCRIPTION: The microscopic examination is performed, except in the case of Gross Only. Electronically Signed by Pathology Report verified by [facility] TOSHIA BEY MD Sign out Date: 04/05/2024 15:39 Performing Lab: [address] Pathology Dept Disclaimer If ancillary studies were utilized, the following Laboratory Developed Test (LDT) disclaimer will apply: Under CLIA requirements, [facility]ology Laboratory is qualified to perform high complexity testing. For all ancillary stains, positive and negative controls stain appropriately. Performance characteristics of immunohistochemical and chromogenic in-situ hybridization tests have been determined by [facility] Laboratory. These tests are used for clinical purposes, They should not be regarded as investigational or for research. Normal [facility] (MD) .Auto Diffon 04-03-2024 Basophil, Absolute 0.0 10 3/mcL Normal 0.0-0.3 [facility] ([place]) Comment on above: Performed By: #### A LEROY, GFR, CBC, ADIFF, BMP #### [address] [address] Basophils/100 WBC (Bld) 0.4 % Normal 0.0-2.5 [facility] ([place]) Comment on above: Performed By: #### A LEROY, GFR, CBC, ADIFF, BMP #### [address] [address] Eosinophil, Absolute 0.1 10 3/mcL Normal 0.0-0.7 [facility] ([place]) Comment on above: Performed By: #### A LEROY, GFR, CBC, ADIFF, BMP #### [address] [address] Eosinophils/100 WBC (Bld) 2.8 % Normal 0.0-6.0 [facility] ([place]) Comment on above: Performed By: #### A LEROY, GFR, CBC, ADIFF, BMP #### [address] [address] Lymphocyte, Absolute 1.5 10 3/mcL Normal 0.9-4.3 [facility] ([place]) Comment on above: Performed By: #### A LEROY, GFR, CBC, ADIFF, BMP #### [address] [address] Lymphocytes/100 WBC (Bld) 37.8 % Normal 20.0-40.0 [facility] ([place]) Comment on above: Performed By: #### A LEROY, GFR, CBC, ADIFF, BMP #### [address] [address] Monocyte, Absolute 0.3 10 3/mcL Normal 0.1-1.4 [facility] ([place]) Comment on above: Performed By: #### A LEROY, GFR, CBC, ADIFF, BMP #### [address] [address] Monocytes/100 WBC (Bld) 7.0 % Normal 2.0-13.0 [facility] ([place]) Comment on above: Performed By: #### A LEROY, GFR, CBC, ADIFF, BMP #### [address] [address] Neutrophils/100 WBC (Bld) 52.0 % Normal 50.0-75.0 [facility] ([place]) Comment on above: Performed By: #### A LEROY, GFR, CBC, ADIFF, BMP #### [address] [address] .GFRon 04-03-2024 GFR >60 Normal [facility] ([place]) Comment on above: Result Comment: GFR Population mean for , Non- Americans Ages 20-29 = 116 mL/min/1.73 sq.m. Ages 30-39 = 107 mL/min/1.73 sq.m. Ages 40-49 = 99 mL/min/1.73 sq.m. Ages 50-59 = 93 mL/min/1.73 sq.m. Ages 60-69 = 85 mL/min/1.73 sq.m. Ages 70+ = 75 mL/min/1.73 sq.m. Chronic Kidney Disease: Less than 60 mL/min/1.73 square meters End Stage Renal Disease: Less than 15 mL/min/1.73 square meters Performed By: #### A LEROY, GFR, CBC, ADIFF, BMP #### [address] [address] GFR Non- >60 Normal [facility] ([place]) Comment on above: Result Comment: GFR Population mean for , Non- Americans Ages 20-29 = 116 mL/min/1.73 sq.m. Ages 30-39 = 107 mL/min/1.73 sq.m. Ages 40-49 = 99 mL/min/1.73 sq.m. Ages 50-59 = 93 mL/min/1.73 sq.m. Ages 60-69 = 85 mL/min/1.73 sq.m. Ages 70+ = 75 mL/min/1.73 sq.m. Chronic Kidney Disease: Less than 60 mL/min/1.73 square meters End Stage Renal Disease: Less than 15 mL/min/1.73 square meters Performed By: #### A LEROY, GFR, CBC, ADIFF, BMP #### [address] [address] .NEUABSon 04-03-2024 Neutrophil, Absolute 2.0 10 3/mcL Low 2.3-8.1 [facility] ([place]) Comment on above: Performed By: #### A LEROY, GFR, CBC, ADIFF, BMP #### [address] [address] BMPon 04-03-2024 BUN/Creatinine Ratio 21.4 ratio Normal 10.0-22.0 [facility] ([place]) Comment on above: Performed By: #### A LEROY, GFR, CBC, ADIFF, BMP #### [address] [address] Calcium [Mass/Vol] 8.4 mg/dL Low 8.7-10.4 [facility] ([place]) Comment on above: Performed By: #### A LEROY, GFR, CBC, ADIFF, BMP #### [address] [address] Chloride [Moles/Vol] 110 mmol/L Normal 98-110 [facility] ([place]) Comment on above: Performed By: #### A LEROY, GFR, CBC, ADIFF, BMP #### [address] [address] CO2 [Moles/Vol] 25 mmol/L Normal 22-32 [facility] ([place]) Comment on above: Performed By: #### A LEROY, GFR, CBC, ADIFF, BMP #### [address] [address] Creatinine [Mass/Vol] 0.70 mg/dL Normal 0.50-1.20 [facility] ([place]) Comment on above: Performed By: #### A LEROY, GFR, CBC, ADIFF, BMP #### [address] [address] Electrolyte Balance 6.0 mEq/L Normal 4.0-15.0 [facility] ([place]) Comment on above: Performed By: #### A LEROY, GFR, CBC, ADIFF, BMP #### [address] [address] Glucose [Mass/Vol] 89 mg/dL Normal 70-110 [facility] ([place]) Comment on above: Performed By: #### A LEROY, GFR, CBC, ADIFF, BMP #### [address] [address] Potassium [Moles/Vol] 4.1 mmol/L Normal 3.5-5.0 [facility] ([place]) Comment on above: Performed By: #### A LEROY, GFR, CBC, ADIFF, BMP #### [address] [address] Sodium [Moles/Vol] 141 mmol/L Normal 136-145 [facility] ([place]) Comment on above: Performed By: #### A LEROY, GFR, CBC, ADIFF, BMP #### [address] [address] Urea nitrogen [Mass/Vol] 15.0 mg/dL Normal 8.0-22.0 [facility] ([place]) Comment on above: Performed By: #### A LEROY, GFR, CBC, ADIFF, BMP #### [place] [address] CBCon 04-03-2024 Erythrocyte distribution width (RBC) [Ratio] 14.5 % Normal 11.5-15.5 [facility] ([place]) Comment on above: Performed By: #### A LEROY, GFR, CBC, ADIFF, BMP #### [place] [address] Hematocrit (Bld) [Volume fraction] 23.9 % Low 34.0-46.0 [facility] ([place]) Comment on above: Performed By: #### A LEROY, GFR, CBC, ADIFF, BMP #### [place] [address] Hgb 8.2 G/dL Low 12.0-16.0 [facility] ([place]) Comment on above: Performed By: #### A LEROY, GFR, CBC, ADIFF, BMP #### [place] [address] MCH (RBC) [Entitic mass] 29.3 pg Normal 27.0-33.0 [facility] ([place]) Comment on above: Performed By: #### A LEROY, GFR, CBC, ADIFF, BMP #### [place] [address] MCHC 34.5 G/dL Normal 32.0-36.0 [facility] ([place]) Comment on above: Performed By: #### A LEROY, GFR, CBC, ADIFF, BMP #### [place] [address] MCV (RBC) [Entitic vol] 84.9 fL Normal 80.0-99.0 [facility] ([place]) Comment on above: Performed By: #### A LEROY, GFR, CBC, ADIFF, BMP #### [place] [address] Platelet 198 10 3/mcL Normal 150-450 [facility] ([place]) Comment on above: Performed By: #### A LEROY, GFR, CBC, ADIFF, BMP #### [facility] [address] [place] [address] Platelet mean volume (Bld) [Entitic vol] 7.5 fL Normal 6.6-10.5 [facility] ([place]) Comment on above: Performed By: #### A LEROY, GFR, CBC, ADIFF, BMP #### [place] [id number] [place] [address] RBC 2.81 10 6/mcL Low 4.10-5.30 [facility] ([place]) Comment on above: Performed By: #### A LEROY, GFR, CBC, ADIFF, BMP #### [place] [id number] [place] [address] WBC 3.9 10 3/mcL Low 4.5-10.8 [facility] ([place]) Comment on above: Performed By: #### A LEROY, GFR, CBC, ADIFF, BMP #### [place] [address] LABORATORYOrdered By: Sonam Davis on 04-03-2024 Beta HCG ( test) Ql (U) HCG not detected.Very dilute urine specimens, as indicated by a low specific gravity, may not contain metals sales representative levels of hCG.If is still suspected, a first morning urine specimen should be collected 48 hours later and tested. Invalid Interpretation Code Manual Urine SS HCG Qn (U) Negative (04/03/24 11:55 AM) Normal Manual Urine SS LABORATORYOrdered By: SYSTEM SYSTEM on 04-03-2024 Basophils (Bld) [#/Vol] 0.0 103/mcL Normal 0.0 - 0.3 10^3/mcL Workflow SS Basophils/100 WBC (Bld) 0.4 % Normal 0.0 - 2.5 % Workflow SS Calcium [Mass/Vol] 8.4 mg/dL Low 8.7 - 10. 4 mg/dL ADM SS Chloride [Moles/Vol] 110 mmol/L Normal 98 - 11 0 mEq/L ADM SS CO2 [Moles/Vol] 25 mmol/L Normal 22 - 32 mEq/L ADM SS Creatinine [Mass/Vol] 0.70 mg/dL Normal 0.50 - 1.20 mg/dL ADM SS Electrolyte Balance 6.0 mEq/L Normal 4.0 - 15 .0 mEq/L ADM SS Eosinophils (Bld) [#/Vol] 0.1 103/mcL Normal 0.0 - 0.7 10^3/mcL Workflow SS Eosinophils/100 WBC (Bld) 2.8 % Normal 0.0 - 6.0 % Workflow SS Erythrocyte distribution width (RBC) [Ratio] 14.5 % Normal 11.5 - 15.5 % Workflow SS GFR/1.73 sq M.predicted among blacks MDRD (S/P/Bld) [Vol rate/Area] ml/min/1.73sqm Invalid Interpretation Code [employer] Chemistry S Comment on above: Interpretive Data: GFR Population mean for , Non- Americans Ages 20-29 = 116 mL/min/1.73 sq.m. Ages 30-39 = 107 mL/min/1.73 sq.m. Ages 40-49 = 99 mL/min/1.73 sq.m. Ages 50-59 = 93 mL/min/1.73 sq.m. Ages 60-69 = 85 mL/min/1.73 sq.m. Ages 70+ = 75 mL/min/1.73 sq.m. Chronic Kidney Disease: Less than 60 mL/min/1.73 square meters End Stage Renal Disease: Less than 15 mL/min/1.73 square meters GFR/1.73 sq M.predicted among non-blacks MDRD (S/P/Bld) [Vol rate/Area] ml/min/1.73sqm Invalid Interpretation Code [employer] Chemistry S Comment on above: Interpretive Data: GFR Population mean for , Non- Americans Ages 20-29 = 116 mL/min/1.73 sq.m. Ages 30-39 = 107 mL/min/1.73 sq.m. Ages 40-49 = 99 mL/min/1.73 sq.m. Ages 50-59 = 93 mL/min/1.73 sq.m. Ages 60-69 = 85 mL/min/1.73 sq.m. Ages 70+ = 75 mL/min/1.73 sq.m. Chronic Kidney Disease: Less than 60 mL/min/1.73 square meters End Stage Renal Disease: Less than 15 mL/min/1.73 square meters Glucose [Mass/Vol] 89 mg/dL Normal 70 - 110 mg/dL ADM SS Hematocrit (Bld) [Volume fraction] 23.9 % Low 34.0 - 46.0 % AH Workflow SS Hemoglobin (Bld) [Mass/Vol] 8.2 G/dL Low 12.0 - 16.0 G/dL AH Workflow SS Lymphocytes (Bld) [#/Vol] 1.5 103/mcL Normal 0.9 - 4.3 10^3/mcL AH Workflow SS Lymphocytes/100 WBC (Bld) 37.8 % Normal 20.0 - 40.0 % AH Workflow SS MCH (RBC) [Entitic mass] 29.3 pg Normal 27.0 - 33.0 pg AH Workflow SS MCHC 34.5 G/dL Normal 32.0 - 36.0 G/dL AH Workflow SS MCV (RBC) [Entitic vol] 84.9 fL Normal 80.0 - 99.0 fL Workflow SS Monocytes (Bld) [#/Vol] 0.3 103/mcL Normal 0.1 - 1.4 10^3/mcL AH Workflow SS Monocytes/100 WBC (Bld) 7.0 % Normal 2.0 - 13.0 % AH Workflow SS Neutrophils (Bld) [#/Vol] 2.0 103/mcL Low 2.3 - 8.1 10^3/mcL AH Workflow SS Neutrophils/100 WBC (Bld) 52.0 % Normal 50.0 - 75.0 % AH Workflow SS Platelet mean volume (Bld) [Entitic vol] 7.5 fL Normal 6.6 - 10.5 fL AH Workflow SS Platelets (Bld) [#/Vol] 198 103/mcL Normal 150 - 450 10^3/mcL AH Workflow SS Potassium [Moles/Vol] 4.1 mmol/L Normal 3.5 - 5.0 mEq/L ADM SS RBC (Bld) [#/Vol] 2.81 106/mcL Low 4.10 - 5.3 0 10^6/mcL AH Workflow SS Sodium [Moles/Vol] 141 mmol/L Normal 136 - 145 mEq/L ADM SS Urea nitrogen [Mass/Vol] 15.0 mg/dL Normal 8.0 - 22.0 mg/dL ADM SS Urea nitrogen/Creatinine [Mass ratio] 21.4 ratio Normal 10.0 - 22.0 ratio ADM SS WBC (Bld) [#/Vol] 3.9 103/mcL Low 4.5 - 10.8 10^3/mcL AH Workflow SS PREGUon 04-03-2024 HCG ( test) Ql (U) Negative Normal [facility] ([place]) Comment on above: Performed By: #### P REGU #### [address] [address] test (u) int Invalid Interpretation Code [facility] ([place]) Comment on above: Result Comment: HCG not detected. Very dilute urine specimens, as indicated by a low specific gravity, may not contain metals sales representative levels of hCG. If is still suspected, a first morning urine specimen should be collected 48 hours later and tested. Performed By: #### P REGU #### [address] [address] .Auto Diffon 04-02-2024 Basophil, Absolute 0.0 10 3/mcL Normal 0.0-0.3 [facility] ([place]) Comment on above: Performed By: #### A LEROY, GFR, CBC, ADIFF, BMP #### [address] [address] Basophils/100 WBC (Bld) 0.4 % Normal 0.0-2.5 [facility] ([place]) Comment on above: Performed By: #### A LEROY, GFR, CBC, ADIFF, BMP #### [address] [address] Eosinophil, Absolute 0.1 10 3/mcL Normal 0.0-0.7 [facility] ([place]) Comment on above: Performed By: #### A LEROY, GFR, CBC, ADIFF, BMP #### [address] [address] Eosinophils/100 WBC (Bld) 1.6 % Normal 0.0-6.0 [facility] ([place]) Comment on above: Performed By: #### A LEROY, GFR, CBC, ADIFF, BMP #### [address] [address] Lymphocyte, Absolute 1.5 10 3/mcL Normal 0.9-4.3 [facility] ([place]) Comment on above: Performed By: #### A LEROY, GFR, CBC, ADIFF, BMP #### [address] [address] Lymphocytes/100 WBC (Bld) 33.7 % Normal 20.0-40.0 [facility] ([place]) Comment on above: Performed By: #### A LEROY, GFR, CBC, ADIFF, BMP #### [address] [address] Monocyte, Absolute 0.3 10 3/mcL Normal 0.1-1.4 [facility] ([place]) Comment on above: Performed By: #### A LEROY, GFR, CBC, ADIFF, BMP #### [address] [address] Monocytes/100 WBC (Bld) 7.4 % Normal 2.0-13.0 [facility] ([place]) Comment on above: Performed By: #### A LEROY, GFR, CBC, ADIFF, BMP #### [address] [address] Neutrophils/100 WBC (Bld) 56.9 % Normal 50.0-75.0 [facility] ([place]) Comment on above: Performed By: #### A LEROY, GFR, CBC, ADIFF, BMP #### [address] [address] .GFRon 04-02-2024 GFR >60 Normal [facility] ([place]) Comment on above: Result Comment: GFR Population mean for , Non- Americans Ages 20-29 = 116 mL/min/1.73 sq.m. Ages 30-39 = 107 mL/min/1.73 sq.m. Ages 40-49 = 99 mL/min/1.73 sq.m. Ages 50-59 = 93 mL/min/1.73 sq.m. Ages 60-69 = 85 mL/min/1.73 sq.m. Ages 70+ = 75 mL/min/1.73 sq.m. Chronic Kidney Disease: Less than 60 mL/min/1.73 square meters End Stage Renal Disease: Less than 15 mL/min/1.73 square meters Performed By: #### A LEROY, GFR, CBC, ADIFF, BMP #### [address] [address] GFR Non- >60 Normal [facility] ([place]) Comment on above: Result Comment: GFR Population mean for , Non- Americans Ages 20-29 = 116 mL/min/1.73 sq.m. Ages 30-39 = 107 mL/min/1.73 sq.m. Ages 40-49 = 99 mL/min/1.73 sq.m. Ages 50-59 = 93 mL/min/1.73 sq.m. Ages 60-69 = 85 mL/min/1.73 sq.m. Ages 70+ = 75 mL/min/1.73 sq.m. Chronic Kidney Disease: Less than 60 mL/min/1.73 square meters End Stage Renal Disease: Less than 15 mL/min/1.73 square meters Performed By: #### A LEROY, GFR, CBC, ADIFF, BMP #### [address] [address] .NEUABSon 04-02-2024 Neutrophil, Absolute 2.6 10 3/mcL Normal 2.3-8.1 [facility] ([place]) Comment on above: Performed By: #### A LEROY, GFR, CBC, ADIFF, BMP #### [place] [address] CBCon 04-02-2024 Erythrocyte distribution width (RBC) [Ratio] 15.0 % Normal 11.5-15.5 [facility] ([place]) Comment on above: Performed By: #### A DIFF, ANEU, CBC #### [place] [address] Hematocrit (Bld) [Volume fraction] 24.2 % Low 34.0-46.0 [facility] ([place]) Comment on above: Performed By: #### A DIFF, ANEU, CBC #### [place] [id number] Hgb 8.0 G/dL Low 12.0-16.0 [facility] ([place]) Comment on above: Performed By: #### A DIFF, ANEU, CBC #### [facility] [address] [place], [place] [address] MCH (RBC) [Entitic mass] 28.1 pg Normal 27.0-33.0 [facility] ([place]) Comment on above: Performed By: #### A DIFF, ANEU, CBC #### [address] [address] MCHC 33.2 G/dL Normal 32.0-36.0 [facility] ([place]) Comment on above: Performed By: #### A DIFF, ANEU, CBC #### [address] [address] MCV (RBC) [Entitic vol] 84.8 fL Normal 80.0-99.0 [facility] ([place]) Comment on above: Performed By: #### A DIFF, ANEU, CBC #### [place] [address] Platelet 204 10 3/mcL Normal 150-450 [facility] ([place]) Comment on above: Performed By: #### A DIFF, ANEU, CBC #### [place] [id number] Platelet mean volume (Bld) [Entitic vol] 7.4 fL Normal 6.6-10.5 [facility] ([place]) Comment on above: Performed By: #### A DIFF ANEU, CBC #### [place] [id number] RBC 2.85 10 6/mcL Low 4.10-5.30 [facility] ([place]) Comment on above: Performed By: #### A DIFF, ANEU, CBC #### [place] [id number] WBC 4.5 10 3/mcL Normal 4.5-10.8 [facility] ([place]) Comment on above: Performed By: #### A DIFF, ANEU, CBC #### [place] [id number] CMPon 04-02-2024 Albumin Level 2.6 G/dL Low 3.2-4.8 [facility] ([place]) Comment on above: Performed By: #### A LEROY, GFR, CBC, ADIFF, BMP #### [address] [address] Albumin/Globulin [Mass ratio] 1.1 {ratio} Normal 0.9-1.6 [facility] ([place]) Comment on above: Performed By: #### A LEROY, GFR, CBC, ADIFF, BMP #### [place] [id number] ALP [Catalytic activity/Vol] 48 U/L Normal 38-126 [facility] ([place]) Comment on above: Performed By: #### A LEROY, GFR, CBC, ADIFF, BMP #### [place] [id number] ALT/SGPT <8 Low 10-49 [facility] ([place]) Comment on above: Performed By: #### A LEROY, GFR, CBC, ADIFF, BMP #### [place] [id number] AST [Catalytic activity/Vol] 16 U/L Normal 8-34 [facility] ([place]) Comment on above: Performed By: #### A LEROY, GFR, CBC, ADIFF, BMP #### [place] [id number] Bili Total 0.60 mg/dL Normal 0.20-1.20 [facility] ([place]) Comment on above: Result Comment: Use of this assay is not recommended for patients undergoing treatment with eltrombopag due to the potential for falsely elevated results. Performed By: #### A LEROY, GFR, CBC, ADIFF, BMP #### [place] [id number] BUN/Creatinine Ratio 37.3 ratio High 10.0-22.0 [facility] ([place]) Comment on above: Performed By: #### A LEROY, GFR, CBC, ADIFF, BMP #### [place] [id number] Calcium [Mass/Vol] 7.8 mg/dL Low 8.7-10.4 [facility] ([place]) Comment on above: Performed By: #### A LEROY, GFR, CBC, ADIFF, BMP #### [place] [id number] Chloride [Moles/Vol] 112 mmol/L High 98-110 [facility] ([place]) Comment on above: Performed By: #### A LEROY, GFR, CBC, ADIFF, BMP #### [address] [address] CO2 [Moles/Vol] 23 mmol/L Normal 22-32 [facility] ([place]) Comment on above: Performed By: #### A LEROY, GFR, CBC, ADIFF, BMP #### [address] [address] Creatinine [Mass/Vol] 0.67 mg/dL Normal 0.50-1.20 [facility] ([place]) Comment on above: Performed By: #### A LEROY, GFR, CBC, ADIFF, BMP #### [address] [address] Electrolyte Balance 6.0 mEq/L Normal 4.0-15.0 [facility] ([place]) Comment on above: Performed By: #### A LEROY, GFR, CBC, ADIFF, BMP #### [address] [address] Globulin 2.4 G/dL Normal 1.5-3.8 [facility] ([place]) Comment on above: Performed By: #### A LEROY, GFR, CBC, ADIFF, BMP #### [address] [address] Glucose [Mass/Vol] 89 mg/dL Normal 70-110 [facility] ([place]) Comment on above: Performed By: #### A LEROY, GFR, CBC, ADIFF, BMP #### [address] [address] Potassium [Moles/Vol] 4.0 mmol/L Normal 3.5-5.0 [facility] ([place]) Comment on above: Performed By: #### A LEROY, GFR, CBC, ADIFF, BMP #### [address] [address] Sodium [Moles/Vol] 141 mmol/L Normal 136-145 [facility] ([place]) Comment on above: Performed By: #### A LEROY, GFR, CBC, ADIFF, BMP #### [place] [address] Total Protein 5.0 G/dL Low 5.7-8.2 [facility] ([place]) Comment on above: Result Comment: No te - New Reference Range in effect 20 Performed By: #### A LEROY, GFR, CBC, ADIFF, BMP #### [place] [id number] Urea nitrogen [Mass/Vol] 25.0 mg/dL High 8.0-22.0 [facility] ([place]) Comment on above: Performed By: #### A LEROY, GFR, CBC, ADIFF, BMP #### [place] [address] HHon 04-02-2024 Hematocrit (Bld) [Volume fraction] 24.5 % Low 34.0-46.0 [facility] ([place]) Comment on above: Performed By: #### H H #### [place] [address] Hgb 8.2 G/dL Low 12.0-16.0 [facility] ([place]) Comment on above: Performed By: #### H H #### [place] [address] Hematocrit (Bld) [Volume fraction] 24.2 % Low 34.0-46.0 [facility] ([place]) Comment on above: Performed By: #### H H #### [place] [address] Hgb 8.2 G/dL Low 12.0-16.0 [facility] ([place]) Comment on above: Performed By: #### H H #### [place] [address] LABORATORYOrdered By: SYSTEM SYSTEM on 04-02-2024 Hematocrit (Bld) [Volume fraction] 24.5 % Low 34.0 - 46.0 % AH Workflow SS Hemoglobin (Bld) [Mass/Vol] 8.2 G/dL Low 12.0 - 16.0 G/dL AH Workflow SS Hematocrit (Bld) [Volume fraction] 24.2 % Low 34.0 - 46.0 % AH Workflow SS Hemoglobin (Bld) [Mass/Vol] 8.2 G/dL Low 12.0 - 16.0 G/dL AH Workflow SS Basophils (Bld) [#/Vol] 0.0 103/mcL Normal 0.0 - 0.3 10^3/mcL AH Workflow SS Basophils/100 WBC (Bld) 0.4 % Normal 0.0 - 2.5 % AH Workflow SS Eosinophils (Bld) [#/Vol] 0.1 103/mcL Normal 0.0 - 0.7 10^3/mcL AH Workflow SS Eosinophils/100 WBC (Bld) 1.6 % Normal 0.0 - 6.0 % AH Workflow SS Erythrocyte distribution width (RBC) [Ratio] 15.0 % Normal 11.5 - 15.5 % AH Workflow SS Lymphocytes (Bld) [#/Vol] 1.5 103/mcL Normal 0.9 - 4.3 10^3/mcL AH Workflow SS Lymphocytes/100 WBC (Bld) 33.7 % Normal 20.0 - 40.0 % AH Workflow SS MCH (RBC) [Entitic mass] 28.1 pg Normal 27.0 - 33.0 pg AH Workflow SS MCHC 33.2 G/dL Normal 32.0 - 36.0 G/dL AH Workflow SS MCV (RBC) [Entitic vol] 84.8 fL Normal 80.0 - 99.0 fL AH Workflow SS Monocytes (Bld) [#/Vol] 0.3 103/mcL Normal 0.1 - 1.4 10^3/mcL AH Workflow SS Monocytes/100 WBC (Bld) 7.4 % Normal 2.0 - 13.0 % AH Workflow SS Neutrophils (Bld) [#/Vol] 2.6 103/mcL Normal 2.3 - 8.1 10^3/mcL AH Workflow SS Neutrophils/100 WBC (Bld) 56.9 % Normal 50.0 - 75.0 % AH Workflow SS Platelet mean volume (Bld) [Entitic vol] 7.4 fL Normal 6.6 - 10.5 fL AH Workflow SS Platelets (Bld) [#/Vol] 204 103/mcL Normal 150 - 450 10^3/mcL AH Workflow SS RBC (Bld) [#/Vol] 2.85 106/mcL Low 4.10 - 5.3 0 10^6/mcL AH Workflow SS WBC (Bld) [#/Vol] 4.5 103/mcL Normal 4.5 - 10.8 10^3/mcL Workflow SS Albumin BCP dye [Mass/Vol] 2.6 G/dL Low 3.2 - 4.8 G/dL ADM SS Albumin/Globulin [Mass ratio] 1.1 {ratio} Normal 0.9 - 1.6 ratio ADM SS ALP [Catalytic activity/Vol] 48 U/L Normal 38 - 126 U/L ADM SS ALT No additional P-5'-P [Catalytic activity/Vol] U/L 1 Low 10 - 49 U/L ADM SS AST [Catalytic activity/Vol] 16 U/L Normal 8 - 34 U/L ADM SS Bilirubin [Mass/Vol] 0.60 mg/dL Normal 0.20 - 1.20 mg/dL ADM SS Comment on above: Interpretive Data: U se of this assay is not recommended for patients undergoing treatment with eltrombopag due to the potential for falsely elevated results. Calcium [Mass/Vol] 7.8 mg/dL Low 8.7 - 10. 4 mg/dL ADM SS Chloride [Moles/Vol] 112 mmol/L High 98 - 11 0 mEq/L ADM SS CO2 [Moles/Vol] 23 mmol/L Normal 22 - 32 mEq/L ADM SS Creatinine [Mass/Vol] 0.67 mg/dL Normal 0.50 - 1.20 mg/dL ADM SS Electrolyte Balance 6.0 mEq/L Normal 4.0 - 15 .0 mEq/L ADM SS GFR/1.73 sq M.predicted among blacks MDRD (S/P/Bld) [Vol rate/Area] ml/min/1.73sqm Invalid Interpretation Code Chemistry S Comment on above: Interpretive Data: GFR Population mean for , Non- Americans Ages 20-29 = 116 mL/min/1.73 sq.m. Ages 30-39 = 107 mL/min/1.73 sq.m. Ages 40-49 = 99 mL/min/1.73 sq.m. Ages 50-59 = 93 mL/min/1.73 sq.m. Ages 60-69 = 85 mL/min/1.73 sq.m. Ages 70+ = 75 mL/min/1.73 sq.m. Chronic Kidney Disease: Less than 60 mL/min/1.73 square meters End Stage Renal Disease: Less than 15 mL/min/1.73 square meters GFR/1.73 sq M.predicted among non-blacks MDRD (S/P/Bld) [Vol rate/Area] ml/min/1.73sqm Invalid Interpretation Code Chemistry S Comment on above: Interpretive Data: GFR Population mean for , Non- Americans Ages 20-29 = 116 mL/min/1.73 sq.m. Ages 30-39 = 107 mL/min/1.73 sq.m. Ages 40-49 = 99 mL/min/1.73 sq.m. Ages 50-59 = 93 mL/min/1.73 sq.m. Ages 60-69 = 85 mL/min/1.73 sq.m. Ages 70+ = 75 mL/min/1.73 sq.m. Chronic Kidney Disease: Less than 60 mL/min/1.73 square meters End Stage Renal Disease: Less than 15 mL/min/1.73 square meters Globulin 2.4 G/dL Normal 1.5 - 3.8 G/dL AH ADM SS Glucose [Mass/Vol] 89 mg/dL Normal 70 - 110 mg/dL AH ADM SS Potassium [Moles/Vol] 4.0 mmol/L Normal 3.5 - 5.0 mEq/L AH ADM SS Protein [Mass/Vol] 5.0 G/dL Low 5.7 - 8.2 G/dL AH ADM SS Comment on above: Interpretive Data: * *Note - New Reference Range in effect 20 Sodium [Moles/Vol] 141 mmol/L Normal 136 - 145 mEq/L ADM SS Urea nitrogen [Mass/Vol] 25.0 mg/dL High 8.0 - 22.0 mg/dL ADM SS Urea nitrogen/Creatinine [Mass ratio] 37.3 ratio High 10.0 - 22.0 ratio ADM SS LABORATORYOrdered By: [place] Ramirez on 04-02-2024 PT Coag (PPP) [Time] 12.2 s Normal 9.0 - 1 4.4 seconds [facility] SS Comment on above: Interpretive Data: E ffective 05/15/08, Protime results may be affected by some antibiotics (i.e. Ciprofloxacin, Azithromycin, Bactrim) which may potentiate the action of oral anticoagulants, with further increases in Protime/INR. PT International Ratio 1.1 ratio Invalid Interpretation Code [facility] SS Comment on above: Interpretive Data: David pavon [employer] (CHEST, 1992, 102:312S-25S) recommended therapeutic range for oral anticoagulant therapy is: LOW RISK: Prophylaxis of venous thrombosis INR: 2.0-3.0 Treatment of pulmonary embolism 2.0-3.0 Prevention of systemic embolism 2.0-3.0 HIGH RISK: Mechanical prosthetic valves 2.5-3.5 PROon 04-02-2024 INR Coag (PPP) [Relative time] 1.1 {INR} Normal [facility] ([place]) Comment on above: Result Comment: [employer] (CHEST, 1992, 102:[id number]) recommended therapeutic range for oral anticoagulant therapy is: LOW RISK: Prophylaxis of venous thrombosis INR: 2.0-3.0 Treatment of pulmonary embolism 2.0-3.0 Prevention of systemic embolism 2.0-3.0 HIGH RISK: Mechanical prosthetic valves 2.5-3.5 Performed By: #### A LEROY, GFR, CBC, ADIFF, BMP #### [address] [address] PT Coag (PPP) [Time] 12.2 s Normal 9.0-14.4 [facility] ([place]) Comment on above: Result Comment: Effe ctive 05/15/08, Protime results may be affected by some antibiotics (i.e. Ciprofloxacin, Azithromycin, Bactrim) which may potentiate the action of oral anticoagulants, with further increases in Protime/INR. Performed By: #### A LEROY, GFR, CBC, ADIFF, BMP #### [facility] [address] [place] [id number] RBC (Product)on 04-02-2024 RBC Product Ready RBC Ready for Pickup Normal [facility] ([place]) Comment on above: Performed By: #### A LEROY, GFR, CBC, ADIFF, BMP #### [facility] [address] [place] [address] ABO/Rh (Gel)on 04-01-2024 ABO/Rh Interp Positive Invalid Interpretation Code [facility] ([place]) Comment on above: Performed By: #### A LEROY, GFR, CBC, ADIFF, BMP #### [facility] [address] [place] [address] ABS (Gel)on 04-01-2024 ABSC Interp (Gel) Negative Normal [facility] ([place]) Comment on above: Performed By: #### A LEROY, GFR, CBC, ADIFF, BMP #### [facility] [address] [place], [place] [id number] BB TYPE & SCREENon 4 ABO O Normal [facility] Comment on above: Performed By: #### 2 48509 #### [facility],[address] [place] [address] ANTIBODY SCR Negative Normal [facility] Comment on above: Performed By: #### 2 71770 #### [facility],[address] [place] [address] BB TYPE & SCREEN Normal [facility] Comment on above: Result Comment: TYPE , Rh, AND SCREEN Performed By: #### 2 24740 #### [facility],[address] [place] [address] Rh Nom (Bld) Positive Normal [facility] Comment on above: Performed By: #### 2 19100 #### [facility],[address] [place] [address] BMP with eGFRon 04-01-2024 AGE 48 years Normal [facility] Comment on above: Performed By: #### 2 44076 #### [facility],[address] [place] [address] Anion gap [Moles/Vol] 11 mmol/L Normal 10 - 2 0 mmol/L [facility] Comment on above: Performed By: #### 2 45623 #### [facility],[address] [place] [address] BMP with eGFR Normal [facility] Comment on above: Result Comment: BASI C METABOLIC PANEL Performed By: #### 2 12061 #### [facility],[address] [place] [address] Calcium [Mass/Vol] 8.1 mg/dL Abnormal 8.5 - 10. 1 mg/dL [facility] Comment on above: Performed By: #### 2 07256 #### [facility],[address] [place], [place] [phone] Chloride [Moles/Vol] 101 mmol/L Normal 98 - 10 7 mmol/L [facility] Comment on above: Performed By: #### 2 17402 #### [facility],[address] [place] [address] CO2 [Moles/Vol] 29.0 mmol/L Normal 21.0 - 32.0 mmol/L [facility] Comment on above: Performed By: #### 2 41400 #### [facility],[address] [place], [place] [id number] Creatinine [Mass/Vol] 0.96 mg/dL Normal 0.55 - 1.02 mg/dL [facility] Comment on above: Performed By: #### 2 77271 #### [facility],[address] [place], [place] [id number] GFR/1.73 sq M.predicted among non-blacks MDRD (S/P/Bld) [Vol rate/Area] mL/min/{1.73_m2} Normal 60 - 999 [facility] Comment on above: Performed By: #### 2 [address]44[address] #### [place] [address] Result Comment: ACCO RDING TO THE NATIONAL KIDNEY DISEASE EDUCATION PROGRAM(NKDE), A NORMAL eGFR IS A VALUE GREATER THAN OR EQUAL TO 60 ML/MIN/1.73 SQ METERS. CHRONIC KIDNEY DISEASE: <60mL/MIN/1.73 SQ METERS KIDNEY FAILURE: <15mL/MIN/1.73 SQ METERS THIS TEST SHOULD ONLY BE USED FOR PATIENTS 18 YEARS OF AGE AND OLDER. Glucose [Mass/Vol] 144 mg/dL Abnormal 74 - 106 mg/dL [facility] Comment on above: Performed By: #### 2 71440 #### [facility],[address] [place] [address] Potassium [Moles/Vol] 3.7 mmol/L Normal 3.5 - 5.1 mmol/L [facility] Comment on above: Performed By: #### 2 93988 #### [facility],[address] [place] [address] Sodium [Moles/Vol] 137 mmol/L Normal 136 - 145 mmol/L [facility] Comment on above: Performed By: #### 2 64572 #### [facility],[address] [place] [address] Urea nitrogen [Mass/Vol] 21 mg/dL Abnormal 7 - 18 mg/dL [facility] Comment on above: Performed By: #### 2 31624 #### [facility],[address] [place] [address] CBC + DIFFon 04-01-2024 Baso # 0.02 [id number]/UL Normal 0.00 - 0.10 [facility] Comment on above: Performed By: #### 2 63040 #### [facility],[address] [place] [address] Basophils/100 WBC (Bld) 0.2 % Normal 0.0 - 2.0 % [facility] Comment on above: Performed By: #### 2 48335 #### [facility],[address] [place] [address] CBC + DIFF Normal [facility] Comment on above: Result Comment: CBC- COMPLETE BLOOD COUNT Performed By: #### 2 21821 #### [facility],[address] [place] [address] EO # 0.19 x10EE3/UL Normal 0.00 - 0.50 [facility] Comment on above: Performed By: #### [id number] #### [facility],[address] [place], [place] [id number] Eosinophils/100 WBC (Bld) 1.8 % Normal 0.0 - 7.0 % [facility] Comment on above: Performed By: #### [id number] #### [facility],[address] [place] [address] Erythrocyte distribution width (RBC) [Ratio] 14.9 % Normal 12.0 - 15.6 % [facility] Comment on above: Performed By: #### [id number] #### [facility],[address] [place] [address] Hematocrit (Bld) [Volume fraction] 26.4 % Abnormal 34.0 - 46.0 % [facility] Comment on above: Performed By: #### 2 16635 #### [facility],[address] [place] [address] Hemoglobin (Bld) [Mass/Vol] 8.9 g/dL Abnormal 12.0 - 16.0 g/dL [facility] Comment on above: Performed By: #### 2 20884 #### [facility],[address] [place] [address] Lymph # 3.09 x10EE3/UL High 0.80 - 2.80 [facility] Comment on above: Performed By: #### 2 14062 #### [place] [id number] Lymphocytes/100 WBC (Bld) 29.3 % Normal 20.0 - 45.0 % [facility] Comment on above: Performed By: #### 2 91001 #### [place] [id number] MANUAL DIFF N/A Normal [facility] Comment on above: Performed By: #### 2 58624 #### [facility],[address] [place], [place] [id number] MCH (RBC) [Entitic mass] 28 pg Normal 27 - 33 pg [facility] Comment on above: Performed By: #### 2 60704 #### [facility],[address] [place] [address] MCHC 34 X10 3 Normal 32 - 36 [facility] Comment on above: Performed By: #### 2 28527 #### [facility],[address] [place] [address]672 MCV (RBC) [Entitic vol] 83 fL Normal 80 - 99 fL [facility] Comment on above: Performed By: #### 2 69391 #### [facility],[address] [place] [address]44 Oxford # 0.61 x10EE3/UL Normal 0.20 - 1.00 [facility] Comment on above: Performed By: #### 2 25462 #### [facility],[address] [place] [address]052 MONOS % 5.8 % Normal 0.0 - 10.0 [facility] Comment on above: Performed By: #### 2 53750 #### [facility],[address] [place] [address]54 Morphology Donald (Bld) [Interp] N/A Normal [facility] Comment on above: Performed By: #### 2 54061 #### [facility],[address] [place] [address]201 Neut # 6.65 x10EE3/UL Normal 1.50 - 7.10 [facility] Comment on above: Performed By: #### 2 49234 #### [facility],[address] [place] [address]005 Neutrophils/100 WBC (Bld) 63.0 % Normal 46.0 - 76.0 % [facility] Comment on above: Performed By: #### 2 73653 #### [facility],[address] [place] [address] 85791 PLATELET 325 x10EE3/UL Normal 150 - 450 [facility] Comment on above: Performed By: #### 2 60080 #### [facility],[address] [place] [address]4021 Platelet mean volume (Bld) [Entitic vol] 7.9 fL Normal 6.6 - 10.5 fL [facility] Comment on above: Result Comment: AUTO MATED DIFFERENTIAL Performed By: #### 2 95076 #### [facility],[address] [place] [address] 39615 RBC 3.19 x 10EE6/UL Low 4.10 - 5.30 [facility] Comment on above: Performed By: #### 2 52090 #### [facility],[address] [place] [address]694 WBC 10.6 x 10EE3/UL Normal 4.5 - 10.8 [facility] Comment on above: Performed By: #### 2 74238 #### [facility],[address] [place] [address] 90056 CHEST 1 VIEWon 04-01-2024 CHEST 1 VIEW [place] [address] Patient: FREEMAN HAYS Phone#: : 1975 Age: 48 Gender: F Pt. Type: ER Account: [id number] Location: [facility] Ordering: DR. BRICE SPENCE Exam Date: 04/01/2024/3:28 Family Phys: Charge Code: [id number] Physician: De Witt Order #: [id number] Dose#: PROCEDURE: X-RAY CHEST 1 VIEW COMPARISON: None. INDICATIONS: VOMITTING BLOOD. FINDINGS: LUNGS: Normal. No significant pulmonary parenchymal abnormalities. VASCULATURE: Normal. Unremarkable pulmonary vasculature. CARDIAC: Normal. No cardiac silhouette abnormality or cardiomegaly. MEDIASTINUM: Normal. No visible mass or adenopathy. PLEURA: Normal. No effusion or pleural thickening. BONES: Normal. No fracture or visible bony lesion. OTHER: Monitoring leads project across thorax CONCLUSION: No acute disease. Dictated by: Scarlett Lloyd MD on 04/01/2024 at 16:55 Approved by: Scarlett Lloyd MD on 04/01/2024 at 16:[address] [facility] CT ABDOMEN/PELVIS Won 2023 CT ABDOMEN/PELVIS [place] [id number] Patient: FREEMAN HAYS Phone#: : 1975 Age: 48 Gender: F Pt. Type: ER Account: [id number] Location: 052 Ordering: DR. BRICE SPENCE Exam Date: 04/01/2024/3:15 Family Phys: Charge Code: [id number] Physician: De Witt Order #: [id number] Dose#: [id number] PROCEDURE: CT ABDOMEN/PELVIS WITH CONTRAST COMPARISON: None. INDICATIONS: VOMITTING BLOOD. TECHNIQUE: After obtaining the patient's consent, CT images were created with non-ionic intravenous contrast material. All CT scans at this facility use dose modulation, iterative reconstruction, and/or weight based dosing when appropriate to reduce radiation dose to as low as reasonably achievable. IV CONTRAST: Omnipaque 350,80ml TOTAL DOSE: 7.70 CTDIvol(mGy) FINDINGS: Patient motion on delayed imaging somewhat limits evaluation. LIVER: Normal. No enlargement, atrophy, abnormal density, or significant focal lesion. BILIARY: Gallbladder is present. PANCREAS: Normal. No lesion, fluid collection, ductal dilatation, or atrophy. SPLEEN: Normal. No enlargement or focal lesion. KIDNEYS: Kidneys enhance and excrete contrast symmetrically. No hydronephrosis. ADRENALS: Normal. No mass or enlargement. AORTA/VASCULAR: No aortic aneurysm. RETROPERITONEUM: Normal. No mass or adenopathy. BOWEL/MESENTERY: The stomach is moderately distended. There is thickening and indistinct appearance of the proximal duodenum, series 2, image 27. The 3rd and 4th parts of the duodenum are unremarkable. No free air. Hyperdense material layering in the stomach may be ingested medication versus blood products. No small or large bowel obstruction or dilatation. Moderate stool burden. ABDOMINAL WALL: There is a right of midline ventral hernia containing fat. The abdominal wall defect measures 1.7 x 1.8 cm. There is a fat containing umbilical hernia. URINARY BLADDER: Normal. No visible focal wall thickening, lesion, or calculus. PELVIC NODES: Normal. No adenopathy. Continued Report - Page 2 of 2 Patient: FREEMAN HAYS Phone#: : 1975 Age: 48 Gender: F Pt. Type: ER Account: [id number] Location: 052 Ordering: DR. BRICE SPENCE Exam Date: 04/01/2024/3:15 Family Phys: Charge Code: [id number] Physician: De Witt Order #: [id number] Dose#: [id number] PELVIC ORGANS: Uterus is present. No adnexal mass. Surgical clips present in the left adnexa. BONES: Normal. No bony lesion or fracture. LUNG BASES: Normal. No visible pulmonary or pleural disease. OTHER: Negative. CONCLUSION: Proximal duodenum wall thickening and indistinct appearance, given history of hematemesis this is highly concerning for peptic ulcer disease. This report was communicated by telephone to Dr. Patricio at the dictation time shown below. Dictated by: Scarlett Lloyd MD on 04/01/2024 at 15:44 Approved by: Scarlett Lloyd MD on 04/01/2024 at 16:08 Normal [facility] HEPATIC FUNCTION PANELon Albumin [Mass/Vol] 2.9 g/dL Abnormal 3.4 - 5.0 g/dL [facility] Comment on above: Performed By: #### 2 10712 #### [facility],[address] [place] [address] ALK PHOS 63 U/L Normal 46 - 116 U/L [facility] Comment on above: Performed By: #### 2 96519 #### [facility],[address] [place] [address] 89190 ALT [Catalytic activity/Vol] 18 U/L Normal 16 - 63 U/L [facility] Comment on above: Performed By: #### 2 76037 #### [facility],[address] [place], [place] [phone] AST [Catalytic activity/Vol] 13 U/L Normal 13 - 39 U/L [facility] Comment on above: Performed By: #### 2 37038 #### [facility],[address] [place] [address] 40265 Bilirubin [Mass/Vol] 0.3 mg/dL Normal 0.2 - 1 .0 mg/dL [facility] Comment on above: Performed By: #### 2 88159 #### [facility],[address] [place] [address] Bilirubin.direct [Mass/Vol] 0.1 mg/dL Normal 0.0 - 0.2 [facility] Comment on above: Performed By: #### 2 98023 #### [facility],[address] [place] [address] 36626 Hepatic function 2000 panel Normal [facility] Comment on above: Result Comment: HEPA TIC FUNCTION PROFILE Performed By: #### 2 02703 #### [facility],[address] [place] [address] 59837 Protein [Mass/Vol] 6.2 g/dL Abnormal 6.4 - 8.2 g/dL [facility] Comment on above: Performed By: #### 2 62202 #### [facility],[address] [place] [address] 22440 HGBon 04-01-2024 Hgb 7.4 G/dL Low 12.0-16.0 [facility] ([place]) Comment on above: Performed By: #### H GB #### [place] [address] HISTORY PHYSICALon HISTORY PHYSICAL HNO ID: [id number] Author: HÉCTOR CERDA MD Service: ? Author Type: Physician Type: H&P Filed: 04/01/2024 06:44 Note Text: Transfer Notes Patient presents from [facility] with an upper GI bleed. She has no history of any GI bleeding in the past, however, her CT scan of the abdomen suggested potential gastric outlet obstruction which could represent malignancy. She had 2 episodes of emesis in the emergency room there which was mostly clotted blood. She received 60 mg of Protonix and 4 mg of Zofran. Hemoglobin stable at 8.9. Although pale in appearance, patient is alert and oriented and has remained hemodynamically stable. She is transferring here for upper GI bleed and possible EGD. MD Alfredo [facility] LABORATORYOrdered By: Bernadette Romero on 04-01-2024 ABO and Rh group Nom (Bld) Blood group O Rh(D) positive Invalid Interpretation Code AH BB Auto SS Blood group antibody screen Ql Negative ABSC (04/01/24 10:13 PM) Normal BB Auto SS RBC Product Ready RBC Ready for Pickup (04/01/24 9:07 PM) Normal BB Manual SS Laboratory - Blood bankon ABO group Nom (Bld) O Normal [facility] [employer] [facility] Work Phone: Blood group antibody screen Ql Negative Normal [facility]; [facility] [employer] [facility] Work Phone: Laboratory - Chemistry and C hemistry - challengeon 04-01-2024 Bilirubin.conjugated [Mass/Vol] 0.1 mg/dL Normal 0.0 - 0.2 mg/dL [facility] [employer] [facility] Work Phone: GFR/1.73 sq M.predicted among blacks MDRD (S/P/Bld) [Vol rate/Area] mL/min/{1.73_m2} Normal 60 - 999 {ML/MINUTE} [facility] [employer] [facility] Work Phone: GFR/1.73 sq M.predicted MDRD (S/P/Bld) [Vol rate/Area] mL/min/{1.73_m2} Normal 60 - 999 {ML/MINUTE} [facility] [employer] [facility] Work Phone: Hepatic function 2000 panel Normal [facility]; [facility] [employer] [facility] Work Phone: Urea nitrogen (U) [Mass/Vol] 4.3 pg/mL Normal 0.0 - 51.4 pg/mL [facility]; [facility] [employer] [facility] Work Phone: Laboratory - Hematology and Cell countson 04-01-2024 Basophils (Bld) [#/Vol] 0.02 {x10EE3/UL} Normal 0.00 - 0.10 {x10EE3/UL} [facility] [employer] [facility] Work Phone: Eosinophils (Bld) [#/Vol] 0.19 {x10EE3/UL} Normal 0.00 - 0.50 {x10EE3/UL} [facility]; [facility] [employer] [facility]. Work Phone: Lymphocytes (Bld) [#/Vol] 3.09 {x10EE3/UL} Abnormal 0.80 - 2.80 {x10EE3/UL} [facility] [employer] [facility] Work Phone: MCHC (RBC) [Mass/Vol] 34 {X10_3} Normal 32 - 3 6 {X10_3} [facility].; [facility] [employer] [facility]. Work Phone: Monocytes (Bld) [#/Vol] 0.61 {x10EE3/UL} Normal 0.20 - 1.00 {x10EE3/UL} [facility].; [facility] [employer] [facility] Work Phone: Monocytes/100 WBC (Bld) 5.8 % Normal 0.0 - 10.0 % [facility]; [facility] [employer] [facility] Work Phone: Neutrophils (Bld) [#/Vol] 6.65 {x10EE3/UL} Normal 1.50 - 7.10 {x10EE3/UL} [employer] [facility] [employer] [facility]. Work Phone: Platelets (Bld) [#/Vol] 325 {x10EE3/UL} Normal 150 - 450 {x10EE3/UL} [facility] [employer] [facility] [employer] [facility] [employer]. Work Phone: RBC (Bld) [#/Vol] 3.19 {x_10EE6/UL} Abnormal 4.10 - 5.30 {x_10EE6/UL} [facility] [employer] [facility] [employer] [facility] [employer]. Work Phone: WBC (Bld) [#/Vol] 10.6 {x_10EE3/UL} Normal 4.5 - 10.8 {x_10EE3/UL} [facility] [employer] [facility] [employer] [facility] [employer] [facility] [employer]. Work Phone: No Panel Informationon 04-01 AGE 48 {years} Normal [facility] [employer] [facility] [employer] [facility] [employer]. Work Phone: BB TYPE Normal [facility] [employer].; [employer] [facility] [employer]. Work Phone: BMP with eGFR Normal [facility] [employer] [facility] [employer] [facility] [employer]. Work Phone: CBC + DIFF Normal [facility] [employer].; [facility] [employer] [facility] [employer]. Work Phone: TROPONIN I, HIGH SENSITIVITY on 04-01-2024 HS TROPONIN 4.3 pg/mL Normal 0.0 - 51.4 [facility] Comment on above: Performed By: #### 2 86361 #### [facility],[address] [facility] [address] .Auto Diffon 02-10-2024 Basophil, Absolute 0.0 10 3/mcL Normal 0.0-0.3 [facility] ([place]) Comment on above: Performed By: #### A LEROY, GFR, CBC, ADIFF, BMP #### [address] [address] Basophils/100 WBC (Bld) 0.3 % Normal 0.0-2.5 [facility] ([place]) Comment on above: Performed By: #### A LEROY, GFR, CBC, ADIFF, BMP #### [address] [address] Eosinophil, Absolute 0.2 10 3/mcL Normal 0.0-0.7 [facility] ([place]) Comment on above: Performed By: #### A LEROY, GFR, CBC, ADIFF, BMP #### [address] [address] Eosinophils/100 WBC (Bld) 3.9 % Normal 0.0-6.0 [facility] ([place]) Comment on above: Performed By: #### A LEROY, GFR, CBC, ADIFF, BMP #### [address] [address] Lymphocyte, Absolute 1.6 10 3/mcL Normal 0.9-4.3 [facility] ([place]) Comment on above: Performed By: #### A LEROY, GFR, CBC, ADIFF, BMP #### [address] [address] Lymphocytes/100 WBC (Bld) 29.0 % Normal 20.0-40.0 [facility] ([place]) Comment on above: Performed By: #### A LEROY, GFR, CBC, ADIFF, BMP #### [address] [address] Monocyte, Absolute 0.4 10 3/mcL Normal 0.1-1.4 [facility] ([place]) Comment on above: Performed By: #### A LEROY, GFR, CBC, ADIFF, BMP #### [address] [address] Monocytes/100 WBC (Bld) 7.7 % Normal 2.0-13.0 [facility] ([place]) Comment on above: Performed By: #### A LEROY, GFR, CBC, ADIFF, BMP #### [address] [address] Neutrophils/100 WBC (Bld) 59.1 % Normal 50.0-75.0 [facility] ([place]) Comment on above: Performed By: #### A LEROY, GFR, CBC, ADIFF, BMP #### [address] [address] .GFRon 02-10-2024 GFR Non- >60 Normal [facility] ([place]) Comment on above: Result Comment: GFR Population mean for , Non- Americans Ages 20-29 = 116 mL/min/1.73 sq.m. Ages 30-39 = 107 mL/min/1.73 sq.m. Ages 40-49 = 99 mL/min/1.73 sq.m. Ages 50-59 = 93 mL/min/1.73 sq.m. Ages 60-69 = 85 mL/min/1.73 sq.m. Ages 70+ = 75 mL/min/1.73 sq.m. Chronic Kidney Disease: Less than 60 mL/min/1.73 square meters End Stage Renal Disease: Less than 15 mL/min/1.73 square meters Performed By: #### A LEROY, GFR, CBC, ADIFF, BMP #### [address] [address] GFR >60 Normal [facility] ([place]) Comment on above: Result Comment: GFR Population mean for , Non- Americans Ages 20-29 = 116 mL/min/1.73 sq.m. Ages 30-39 = 107 mL/min/1.73 sq.m. Ages 40-49 = 99 mL/min/1.73 sq.m. Ages 50-59 = 93 mL/min/1.73 sq.m. Ages 60-69 = 85 mL/min/1.73 sq.m. Ages 70+ = 75 mL/min/1.73 sq.m. Chronic Kidney Disease: Less than 60 mL/min/1.73 square meters End Stage Renal Disease: Less than 15 mL/min/1.73 square meters Performed By: #### A LEROY, GFR, CBC, ADIFF, BMP #### [place] [address] .NEUABSon 02-10-2024 Neutrophil, Absolute 3.3 10 3/mcL Normal 2.3-8.1 [facility] ([place]) Comment on above: Performed By: #### A LEROY, GFR, CBC, ADIFF, BMP #### [place] [address] CBCon 02-10-2024 Erythrocyte distribution width (RBC) [Ratio] 12.9 % Normal 11.5-15.5 [facility] ([place]) Comment on above: Performed By: #### A LEROY, GFR, CBC, ADIFF, BMP #### [place] [address] Hematocrit (Bld) [Volume fraction] 31.6 % Low 34.0-46.0 [facility] ([place]) Comment on above: Performed By: #### A LEROY, GFR, CBC, ADIFF, BMP #### [place] [address] Hgb 10.6 G/dL Low 12.0-16.0 [facility] ([place]) Comment on above: Performed By: #### A LEROY, GFR, CBC, ADIFF, BMP #### [place] [address] MCH (RBC) [Entitic mass] 27.8 pg Normal 27.0-33.0 [facility] ([place]) Comment on above: Performed By: #### A LEROY, GFR, CBC, ADIFF, BMP #### [place] [address] MCHC 33.6 G/dL Normal 32.0-36.0 [facility] ([place]) Comment on above: Performed By: #### A LEROY, GFR, CBC, ADIFF, BMP #### [place] [address] MCV (RBC) [Entitic vol] 82.6 fL Normal 80.0-99.0 [facility] ([place]) Comment on above: Performed By: #### A LEROY, GFR, CBC, ADIFF, BMP #### [place] [address] Platelet 289 10 3/mcL Normal 150-450 [facility] ([place]) Comment on above: Performed By: #### A LEROY, GFR, CBC, ADIFF, BMP #### [place] [address] Platelet mean volume (Bld) [Entitic vol] 7.6 fL Normal 6.6-10.5 [facility] ([place]) Comment on above: Performed By: #### A LEROY, GFR, CBC, ADIFF, BMP #### [place] [address] RBC 3.83 10 6/mcL Low 4.10-5.30 [facility] ([place]) Comment on above: Performed By: #### A LEROY, GFR, CBC, ADIFF, BMP #### [place] [address] WBC 5.5 10 3/mcL Normal 4.5-10.8 [facility] ([place]) Comment on above: Performed By: #### A LEORY, GFR, CBC, ADIFF, BMP #### [place] [address] CMPon 02-10-2024 Albumin Level 3.6 G/dL Normal 3.2-4.8 [facility] ([place]) Comment on above: Performed By: #### A LEROY, GFR, CBC, ADIFF, BMP #### [place] [address] Albumin/Globulin [Mass ratio] 1.1 {ratio} Normal 0.9-1.6 [facility] ([place]) Comment on above: Performed By: #### A LEROY, GFR, CBC, ADIFF, BMP #### [place] [id number] ALP [Catalytic activity/Vol] 72 U/L Normal 38-126 [facility] ([place]) Comment on above: Performed By: #### A LEROY, GFR, CBC, ADIFF, BMP #### [address] [address] ALT [Catalytic activity/Vol] 13 U/L Normal 10-49 [facility] ([place]) Comment on above: Performed By: #### A LEROY, GFR, CBC, ADIFF, BMP #### [address] [address] AST [Catalytic activity/Vol] 20 U/L Normal 8-34 [facility] ([place]) Comment on above: Performed By: #### A LEROY, GFR, CBC, ADIFF, BMP #### [address] [address] Bili Total 0.40 mg/dL Normal 0.20-1.20 [facility] ([place]) Comment on above: Result Comment: Use of this assay is not recommended for patients undergoing treatment with eltrombopag due to the potential for falsely elevated results. Performed By: #### A LEROY, GFR, CBC, ADIFF, BMP #### [address] [address] BUN/Creatinine Ratio 17.7 ratio Normal 10.0-22.0 [facility] ([place]) Comment on above: Performed By: #### A LEROY, GFR, CBC, ADIFF, BMP #### [address] [address] Calcium [Mass/Vol] 9.7 mg/dL Normal 8.7-10.4 [facility] ([place]) Comment on above: Performed By: #### A LEROY, GFR, CBC, ADIFF, BMP #### [address] [address] Chloride [Moles/Vol] 107 mmol/L Normal 98-110 [facility] ([place]) Comment on above: Performed By: #### A LEROY, GFR, CBC, ADIFF, BMP #### [address] [address] CO2 [Moles/Vol] 28 mmol/L Normal 22-32 [facility] ([place]) Comment on above: Performed By: #### A LEROY, GFR, CBC, ADIFF, BMP #### [address] [address] Creatinine [Mass/Vol] 0.79 mg/dL Normal 0.50-1.20 [facility] ([place]) Comment on above: Performed By: #### A LEROY, GFR, CBC, ADIFF, BMP #### [address] [address] Electrolyte Balance 4.0 mEq/L Normal 4.0-15.0 [facility] ([place]) Comment on above: Performed By: #### A LEROY, GFR, CBC, ADIFF, BMP #### [address] [address] Globulin 3.2 G/dL Normal 1.5-3.8 [facility] ([place]) Comment on above: Performed By: #### A LEROY, GFR, CBC, ADIFF, BMP #### [address] [address] Glucose [Mass/Vol] 97 mg/dL Normal 70-110 [facility] ([place]) Comment on above: Performed By: #### A LEROY, GFR, CBC, ADIFF, BMP #### [address] [address] Potassium [Moles/Vol] 4.7 mmol/L Normal 3.5-5.0 [facility] ([place]) Comment on above: Performed By: #### A LEROY, GFR, CBC, ADIFF, BMP #### [address] [address] Sodium [Moles/Vol] 139 mmol/L Normal 136-145 [facility] ([place]) Comment on above: Performed By: #### A LEROY, GFR, CBC, ADIFF, BMP #### [address] [address] Total Protein 6.8 G/dL Normal 5.7-8.2 [facility] ([place]) Comment on above: Result Comment: No te - New Reference Range in effect 20 Performed By: #### A LEROY, GFR, CBC, ADIFF, BMP #### [address] [address] Urea nitrogen [Mass/Vol] 14.0 mg/dL Normal 8.0-22.0 [facility] ([place]) Comment on above: Performed By: #### A LEROY, GFR, CBC, ADIFF, BMP #### [facility] [address] [place] [address] LIPon 02-10-2024 Lipase Level 28 U/L Normal 12-53 [facility] ([place]) Comment on above: Result Comment: No te - New Reference Range in effect 20 Performed By: #### A LEROY, GFR, CBC, ADIFF, BMP #### [address] [address] US ABDOMEN LIMITEDon 024 US ABDOMEN LIMITED ORIGINAL EXAMINATION: RIGHT UPPER QUADRANT ULTRASOUND 02/10/2024 9:44 am COMPARISON: None. HISTORY: ORDERING SYSTEM PROVIDED HISTORY: Reason for Exam: Rule out gallbladder disease. Right upper quadrant pain, worse after eating. FINDINGS: LIVER: The liver is normal in size and echogenicity. There is slight coarsening of echotexture on some images and slight nodularity of the liver margins on some images also. No focal mass is seen. There is antegrade flow in the main portal vein. BILIARY SYSTEM: Gallbladder is slightly over distended without evidence of pericholecystic fluid, wall thickening or stones. This is of unlikely clinical significance. Negative sonographic Kearns's sign. Common bile duct is within normal limits measuring 4.95 mm. RIGHT KIDNEY: The right kidney is grossly unremarkable without evidence of hydronephrosis. PANCREAS: Visualized portions of the pancreas are unremarkable. OTHER: No evidence of right upper quadrant ascites. IMPRESSION: No acute abnormality. Questionable findings of diffuse hepatocellular disease and slight liver nodularity versus artifact. Correlate with LFTs. If these are abnormal, consider liver elastography to evaluate for the possibility of underlying fibrosis/cirrhosis. I have personally reviewed the images of this examination and agree with the resident's findings and interpretation. Interpreted by: Tio Brown MD Preliminary Report By: Dimas Colvin Electronically signed By Tio Brown MD Dictated Date: 02/10/2024 11:16:44 AM Prelim Date: 02/10/2024 6:56:03 PM Sign Date: 02/10/2024 6:56:03 PM Ordering Provider: ALEXIS Salcido [facility] (MD) Vital Signs Date Time Vital Sign Value Performing Clinician Facility 08-09-2025 08:53-0400 Body temperature 98 [degF] Dr. Evert Beard DPM Work Phone: [facility] 08-09-2025 08:53-0400 Body weight 81.[address] Evert Beard DPM Work Phone: [facility] 08-09-2025 08:53-0400 Diastolic blood pressure 68 mm[Hg] Dr. Evert Beard DPM Work Phone: [facility] 08-09-2025 08:53-0400 Heart rate 67 /min Dr. Evert Beard DPM Work Phone: [facility] 08-09-2025 08:53-0400 Respiratory rate 16 /min Dr. Evert Beard DPM Work Phone: [facility] 08-09-2025 08:53-0400 SaO2% (BldA) [Mass fraction] 100 % Dr. Evert Beard DPM Work Phone: [facility] 08-09-2025 08:53-0400 Systolic blood pressure 115 mm[Hg] Dr. Evert Beard DPM Work Phone: [facility] 04-03-2024 18:47-0400 Body temperature 98.24 [degF] DR MISHA BOUCHER MD [facility] 04-03-2024 18:47-0400 Diastolic Blood Pressure Non-Invasive 89 mm[Hg] DR MISHA BOUCHER MD [facility] 04-03-2024 18:47-0400 Heart rate 79 /min DR MISHA BOUCHER MD [facility] 04-03-2024 18:47-0400 Reason For Taking VItal Signs DR MISHA BOUCHER MD [facility] 04-03-2024 18:47-0400 Respiratory rate 16 /min DR MISHA BOUCHER MD [address] [place] [address] 04-03-2024 18:47-0400 Systolic Blood Pressure Non-Invasive 139 mm[Hg] DR MISHA BOUCHER MD [address] [place] [address] 04-03-2024 15:21-0400 Body temperature 98.24 [degF] DR MISHA BOUCHER MD [address] [place] [address] 04-03-2024 15:21-0400 Diastolic Blood Pressure Non-Invasive 69 mm[Hg] DR MISHA BOUCHER MD [address] 04-03-2024 15:21-0400 Heart rate 68 /min DR MISHA BOUCHER MD [address] [place] [address] 04-03-2024 15:21-0400 Respiratory rate 16 /min DR MISHA BOUCHER MD [address] 04-03-2024 15:21-0400 Systolic Blood Pressure Non-Invasive 106 mm[Hg] DR MISHA BOUCHER MD [address] 04-03-2024 14:44-0400 Body temperature 97.34 [degF] DR MISHA BOUCHER MD [address] 04-03-2024 14:44-0400 Diastolic Blood Pressure Non-Invasive 59 mm[Hg] DR MISHA BOUCHER MD [address] 04-03-2024 14:44-0400 Heart rate 80 /min DR MISHA BOUCHER MD [address] [place] [address] 04-03-2024 14:44-0400 Mean blood pressure 74 mm[Hg] DR MISHA BOUCHER MD [address] [place] [address] 04-03-2024 14:44-0400 Respiratory rate 20 /min DR MISHA BOUCHER MD [address] 04-03-2024 14:44-0400 Systolic Blood Pressure Non-Invasive 107 mm[Hg] DR MISHA BOUCHER MD [address] [place] [address] 04-03-2024 14:32-0400 Heart rate 72 /min DR MISHA BOUCHER MD [address] [place] [address] 04-03-2024 14:28-0400 Body temperature 97.16 [degF] DR MISHA BOUCHER MD [address] [place] [address] 04-03-2024 14:28-0400 Heart rate 70 /min DR MISHA BOUCHER MD [address] [place] [address] 04-03-2024 14:28-0400 Mean blood pressure 53 mm[Hg] DR MISHA BOUCHER MD [address] 04-03-2024 14:25-0400 Respiratory Rate - Anes 21 br/min DR MISHA BOUCHER MD [address] 04-03-2024 14:20-0400 Respiratory Rate - Anes 16 br/min DR MISHA BOUCHER MD [address] [place] [address] 04-03-2024 14:15-0400 Body temperature 97.7 [degF] DR MISHA BOUCHER MD [address] [place] [address] 04-03-2024 14:15-0400 Respiratory Rate - Anes 16 br/min DR MISHA BOUCHER MD [address] 04-03-2024 11:25-0400 Blood Pressure Cuff Size DR MISHA BOUCHER MD [address] [place] [address] 04-03-2024 11:25-[address] MISHA BOUCHER MD [address] [place] [address] 04-03-2024 11:25-[address] MISHA BOUCHER MD [address] [place] [address] 04-03-2024 11:25-0400 Body temperature 98.06 [degF] DR MISHA BOUCHER MD [address] [place] [address] 04-03-2024 11:25-0400 Heart rate 62 /min DR MISHA BOUCHER MD [address] [place] [address] 04-03-2024 11:25-0400 Reason For Taking VItal Signs DR MISHA BOUCHER MD [address] [place] [address] 04-03-2024 07:02-0400 Blood Pressure Cuff Size DR MISHA BOUCHER MD [address] [place] [address] 04-03-2024 07:02-[address] MISHA BOUCHER MD [address] [place] [address] 04-03-2024 07:02-[address] MISHA BOUCHER MD [address] [place] [address] 04-03-2024 07:02-0400 Reason For Taking VItal Signs DR MISHA BOUCHER MD [address] [place] [address] 04-03-2024 03:19-[address] MISHA BOUCHER MD [address] [place] [address] 04-03-2024 03:19-[address] MISHA BOUCHER MD [address] [place] [address] 04-02-2024 14:17-0400 Blood Pressure Cuff Size DR MISHA BOUCHER MD [address] [place] [address] 04-02-2024 04:26-0400 Diastolic blood pressure 67 mm[Hg] DR MISHA BOUCHER MD [address] [place] [address] 04-02-2024 04:26-0400 Signs/Symptoms Transfusion Reaction DR MISHA BOUCHER MD [address] [place] [address] 04-02-2024 04:26-0400 Systolic blood pressure 103 mm[Hg] DR MISHA BOUCHER MD [address] [place] [address] 04-02-2024 04:25-0400 Signs/Symptoms Transfusion Reaction No DR MISHA BOUCHER MD [address] [place] [address] 04-02-2024 04:14-0400 Signs/Symptoms Transfusion Reaction DR MISHA BOUCHER MD [address] [place] [address] 04-02-2024 02:17-0400 Diastolic blood pressure 66 mm[Hg] DR MISHA BOUCHER MD [facility] 04-02-2024 02:17-0400 Systolic blood pressure 108 mm[Hg] DR MISHA BOUCHER MD [facility] 04-01-2024 18:58-0400 Body height [address] MISHA BOUCHER MD [facility] 04-01-2024 18:58-0400 Body weight 74.[address] MISHA BOUCHER MD [facility] 04-01-2024 18:58-0400 Body weight 30.18 kg/m2 DR MISHA BOUCHER MD [facility] 11-03-2022 15:13-0500 Body height 157.48 cm Sharee CANDELARIO MD Work Phone: [facility] [employer]; [facility] [employer] 11-03-2022 15:13-0500 Body mass index (BMI) [Ratio] 32.56 kg/m2 Sharee CANDELARIO MD Work Phone: [facility] [employer]; [facility] 11-03-2022 15:13-0500 Body surface area Derived from formula 1.82 m2 Sharee CANDELARIO MD Work Phone: [facility] [employer]; [facility] [employer]. 11-03-2022 15:13-0500 Body temperature 98 [degF] Sharee CANDELARIO MD Work Phone: [facility] [employer].; [facility] [employer]. Comment on above: Method: Oral 11-03-2022 15:13-0500 Body weight 80.74 kg Sharee CANDELARIO MD Work Phone: [facility] [employer].; [facility] [employer]. 11-03-2022 15:13-0500 Diastolic blood pressure 77 mm[Hg] Sharee CANDELARIO MD Work Phone: [employer]. Comment on above: Patient Position: Sitting; Cuff Location : Left Arm; Cuff Size: Large 11-03-2022 15:13-0500 Heart rate 72 /min Sharee CANDELARIO MD Work Phone: [employer] Comment on above: Pattern: Regular 11-03-2022 15:13-0500 Systolic blood pressure 109 mm[Hg] Sharee CANDELARIO MD Work Phone: [employer]. Comment on above: Patient Position: Sitting; Cuff Location : Left Arm; Cuff Size: Large 11-22-2018 13:04-0500 Body height 157.48 cm Keysha Zavaleta RN [facility] [employer] [facility], [employer] 11-22-2018 13:04-0500 Body mass index (BMI) [Ratio] 30.91 kg/m2 Keysha Zavaleta RN [facility] [employer] [facility], [employer] 11-22-2018 13:04-0500 Body surface area Derived from formula 1.78 m2 Keysha Zavaleta RN [facility] [employer], [employer] 11-22-2018 13:04-0500 Body temperature 97.4 [degF] Keysha Zavaleta RN [facility] [employer] [facility], [employer] Comment on above: Method: Oral 11-22-2018 13:04-0500 Body weight 76.66 kg Keysha Zavaleta RN [facility] [employer] [facility], [employer] 11-22-2018 13:04-0500 Diastolic blood pressure 64 mm[Hg] Keysha Zavaleta RN [facility] [employer] Comment on above: Patient Position: Sitting; Cuff Location : Left Arm; Cuff Size: Large 11-22-2018 13:04-0500 Heart rate 60 /min Keysha Zavaleta RN [facility] [employer] [facility], [employer] [facility] [employer] Comment on above: Pattern: Regular 11-22-2018 13:04-0500 Systolic blood pressure 100 mm[Hg] Keysha Zavaleta RN [facility] [employer], [employer] [employer], [employer] Comment on above: Patient Position: Sitting; Cuff Location : Left Arm; Cuff Size: Large 07-08-2018 14:51-0400 Body height 157.48 cm Josy Auguste RN [facility] [employer], [employer] [facility] [employer] 07-08-2018 14:51-0400 Body mass index (BMI) [Ratio] 31.46 kg/m2 Josy Auguste RN [facility] [employer], [employer] [facility] [employer] 07-08-2018 14:51-0400 Body surface area Derived from formula 1.79 m2 Josy Auguste RN [facility] [employer], [employer] [facility] [employer], [employer] 07-08-2018 14:51-0400 Body temperature 97.6 [degF] Josy Auguste RN [facility] [employer], [employer] Comment on above: Method: Oral 07-08-2018 14:51-0400 Body weight 78.02 kg Josy Auguste RN [facility] [employer], [employer] [facility] [employer], [employer] 07-08-2018 14:51-0400 Diastolic blood pressure 69 mm[Hg] Josy Auguste RN [facility] [employer], [employer] [facility] [employer] [facility], [employer] Comment on above: Patient Position: Sitting; Cuff Location : Left Arm; Cuff Size: Standard 07-08-2018 14:51-0400 Heart rate 71 /min Josy Auguste RN [facility] [employer], [employer] [facility] [employer] Comment on above: Pattern: Regular 07-08-2018 14:51-0400 Systolic blood pressure 104 mm[Hg] Josy Auguste RN [facility] [employer], [employer] Comment on above: Patient Position: Sitting; Cuff Location : Left Arm; Cuff Size: Standard 03-03-2013 14:30-0400 Body temperature 97.8 [degF] R CATE KORNHAUS MD Work Phone: [facility] [employer].; [employer] [facility] [employer] [facility] [employer]. Comment on above: Method: Oral 03-03-2013 14:30-0400 Diastolic blood pressure 73 mm[Hg] Sharee CANDELARIO MD Work Phone: [facility] [employer].; [employer] [facility] [employer] [facility] [employer]. Comment on above: Patient Position: Sitting; Cuff Location : Left Arm; Cuff Size: Large 03-03-2013 14:30-0400 Heart rate 71 /min Sharee CANDELARIO MD Work Phone: [employer].; [employer] [facility] [employer] [facility] [employer]. Comment on above: Pattern: Regular 03-03-2013 14:30-0400 Inhaled oxygen concentration 21 % Sharee CANDELARIO MD Work Phone: [employer] [facility] [employer]; [employer] [facility] [employer] [facility] [employer]. Comment on above: Room air 03-03-2013 14:30-0400 SaO2% (BldA) [Mass fraction] 96 % Sharee CANDELARIO MD Work Phone: [employer] [facility] [employer] [facility] [employer]. 03-03-2013 14:30-0400 Systolic blood pressure 106 mm[Hg] Sharee CANDELARIO MD Work Phone: [facility] [employer].; [employer] [facility] [employer] [facility] [facility] [employer]. Comment on above: Patient Position: Sitting; Cuff Location : Left Arm; Cuff Size: Large 12-14-2011 16:00-0500 Body height 158.75 cm Josy Auguste RN [facility] [employer] [facility], [employer] [facility] [employer]. 12-14-2011 16:00-0500 Body mass index (BMI) [Ratio] 30.06 kg/m2 Josy Auguste RN [facility] [employer], [employer] [facility] [employer], [employer]. 12-14-2011 16:00-0500 Body surface area Derived from formula 1.78 m2 Josy Auguste RN [facility] [employer].; [facility] [employer] 12-14-2011 16:00-0500 Body temperature 100.4 [degF] [facility].; [facility] [employer], [employer]. Comment on above: Method: Oral 12-14-2011 16:00-0500 Body weight 75.75 kg [facility]y [facility].; [facility] [employer] 12-14-2011 16:00-0500 Diastolic blood pressure 55 mm[Hg] Josy Auguste RN [facility] [employer].; [facility] [employer], [employer]. Comment on above: Patient Position: Sitting; Cuff Location : Left Arm; Cuff Size: Standard 12-14-2011 16:00-0500 Heart rate 109 /min Josy Auguste RN [facility] [employer].; [employer] [facility] [employer] [facility] [employer]. Comment on above: Pattern: Regular 12-14-2011 16:00-0500 Systolic blood pressure 91 mm[Hg] Josy Auguste RN [facility] [employer].; [facility] [employer], [employer]. Comment on above: Patient Position: Sitting; Cuff Location : Left Arm; Cuff Size: Standard Encounters Encounter Date Encounter Type Care Provider Facility Start: 10-11-2025 ambulatory [facility] Facility:[facility] Start: 08-09-2025 End: 08-09-2025 Historical Summary Sharee CANDELARIO MD Work Phone: [facility] [employer] Start: 08-09-2025 End: 08-09-2025 Patient encounter procedure Komal GONZALEZ -[facility] Work Phone: Start: 08-09-2025 End: 08-09-[address] Evert Beard DPM Work Phone: -[facility] Start: 06-19-2025 End: 06-19-[address] Evert Beard DPM Work Phone: -[facility] Start: 06-19-2025 End: 06-19-[address] Evert Beard DPM -[facility] Work Phone: Start: 06-19-2025 End: 06-19-2025 ambulatory Evert Beard Facility:[facility] Start: 08-14-2024 End: 08-14-2024 Lab Only Sharee CANDELARIO MD Work Phone: [facility] [employer] Start: 06-20-2024 End: 06-20-2024 Historical Summary Sharee CANDELARIO MD [facility]: [facility] [employer] Start: 04-14-2024 Review Sharee CANDELARIO MD Work Phone: [facility] [employer] Start: 04-13-2024 End: 04-13-2024 ambulatory TUAN NELSON [facility] Start: 04-13-2024 End: 04-13-2024 Lab Only Sharee CANDELARIO MD Work [facility] Start: 04-01-2024 End: 04-03-2024 ambulatory ADRIANA HILL MD Facility:A Start: 04-01-2024 End: 04-03-[address] MISHA BOUCHER MD [facility] Start: 04-01-2024 Evaluation and management of inpatient [facility] Start: 04-01-2024 End: 04-01-2024 Emergency department patient visit BRICE CUNHA [facility] Start: 02-10-2024 End: 02-10-2024 ambulatory CATE NELSON MD Facility:[facility] Start: 02-02-2024 End: 02-02-2024 ambulatory CATE NELSON MD Facility:[facility] Start: 11-03-2022 End: 11-03-2022 Office outpatient visit 15 minutes Sharee CANDELARIO MD Work Phone: [facility] Start: 11-22-2018 End: 11-22-2018 Office outpatient visit 15 minutes Sharee CANDELARIO MD [facility] Start: 07-08-2018 End: 07-08-2018 Office outpatient visit 10 minutes Sharee CANDELARIO MD [facility] Start: 03-03-2013 End: 03-03-2013 Patient encounter procedure Sharee CANDELARIO MD [facility] Start: 12-14-2011 End: 12-14-2011 Patient encounter procedure Sharee CANDELARIO MD [facility] Procedures Date Procedure Procedure Detail Performing Clinician Start: 11-22-2018 End: 11-22-2018 Ceftriaxone sodium injection Sharee CANDELARIO MD Work Phone: Start: 11-22-2018 End: 11-22-2018 Dischrg meds reconciled w/current med list Sharee CANDELARIO MD Work Phone: Start: 11-22-2018 End: 11-22-2018 Therapeutic prophylactic/dx injection subq/im Sharee CANDELARIO MD Work Phone: Start: 11-22-2018 End: 11-22-2018 Urinary Incontinence Keysha Zavaleta RN Comment on above: Negative. Start: 12-14-2011 End: 12-14-2011 Ceftriaxone sodium injection Sharee CANDELARIO MD Work Phone: Start: 12-14-2011 End: 12-14-2011 Therapeutic prophylactic/dx injection subq/im Sharee CANDELARIO MD Work Phone: section DR MISHA LIN MD Plan of Treatment Date Care Activity Detail Author Start: 08-14-2024 Blood count complete auto&auto difrntl wbc CBC, PLATELETS & AUT DIFF ([id number]) Start: 14-Aug-2024 09:20-04:00 [facility]; [facility] [employer] Start: 04-13-2024 Blood count complete auto&auto difrntl wbc CBC, PLATELETS & AUT DIFF ([id number]) Start: 13-Apr-2024 11:28-04:00 Request [facility] [employer]; [facility]. Start: 04-13-2024 Basic metabolic pane l calcium total BMP ([id number]) Start: 13-Apr-2024 11:28-04:00 Request [facility] [employer]; [facility] Immunizations Immunization Date Immunization Notes Care Provider Fa cility influenza virus vaccine, unspecified formulation Sharee CANDELARIO MD Work Phone: [facility] [employer]; [facility] [employer] Comment on above: Refused. 11/22/2018 Payers Date Payer Category Payer Unknown [id number] 2024 Self-pay 1975 Unknown [id number] 1975 Unknown [id number] [id number] [id number] 1973 Unknown [id number] [id number] 1973 Unknown [id number] [id number] Unknown [id number] [id number] [id number] Unknown [id number] [id number] [id number] Unknown [id number] [id number] [id number] Social History Date Type Detail Facility Start: 01-25-2024 End: 08-09-2025 Tobacco smoking status Never smoked tobacco (finding) [facility] Sex Assigned At Sex [facility] Alcohol Use: Alcohol Use: ; N o Alcohol Use. [facility] [employer] [facility] Tobacco use: Tobacco use: ; N ever smoker. [facility]. Start: 1975 Female [facility] Tobacco smoking stat us NHIS Unknown if ever smoked [facility] Work Phone: Sex Female [facility] Functional Status Date Assessment Result Facility 04-03-2024 Functional Status Room located n ear nursing station, Door open, Room check performed [facility] 04-03-2024 Functional Status Awake [facility] 04-03-2024 Functional Status Multilevel home [facility] 04-03-2024 Functional Status [facility] 04-03-2024 Functional Status [facility] 04-03-2024 Functional Status [facility] 04-02-2024 Functional Status [facility] 04-02-2024 Functional Status [facility] 04-02-2024 Functional Status [facility] 04-02-2024 Functional Status [facility] 04-02-2024 Functional Status Nurse Safety Luca gavin q2hrs Performed 3pm-3am [facility] 04-01-2024 Functional Status [facility] Mental Status Date Assessment Result Facility 04-03-2024 Mental Status Orientation Oriented x 4 [facility] 04-03-2024 Mental Status [facility] 04-02-2024 Mental Status [facility] 04-02-2024 Mental Status [facility] Clinical Notes 04-01-2024 to 04-03-2024 Note Date & Type Note Facility 04-03-2024 Hospital Discharg e instructions Patient Education 04/03/2024 17:32:17 Gastrointestinal Bleeding, [id number] Gastrointestinal Bleeding Gastrointestinal (GI) bleeding is bleeding somewhere along the path that food travels through the body (digestive tract). This path is anywhere between the mouth and the opening of the butt (anus). You may have blood in your poop (stool) or have black poop. If you throw up (vomit), there may be blood in it. This condition can be mild, serious, or even life-threatening. If you have a lot of bleeding, you may need to stay in the hospital. What are the causes? This condition may be caused by: Irritation and swelling of the esophagus (esophagitis). The esophagus is part of the body that moves food from your mouth to your stomach. Swollen veins in the butt (hemorrhoids). Areas of painful tearing in the opening of the butt (anal fissures). These are often caused by passing hard poop. Pouches that form on the colon over time (diverticulosis). Irritation and swelling (diverticulitis) in areas where pouches have formed on the colon. Growths (polyps) or cancer. Colon cancer often starts out as growths that are not cancer. Irritation of the stomach lining (gastritis). Sores (ulcers) in the stomach. What increases the risk? You are more likely to develop this condition if you: Have a certain type of infection in your stomach (Helicobacter pylori infection). Take certain medicines. Smoke. Drink alcohol. What are the signs or symptoms? Common symptoms of this condition include: Throwing up (vomiting) material that has bright red blood in it. It may look like coffee grounds. Changes in your poop. The poop may: ?Have red blood in it. ?Be black, look like tar, and smell stronger than normal. ?Be red. Pain or cramping in the belly (abdomen). How is this treated? Treatment for this condition depends on the cause of the bleeding. For example: Sometimes, the bleeding can be stopped during a procedure that is done to find the problem (endoscopy or colonoscopy). Medicines can be used to: ?Help control irritation, swelling, or infection. ?Reduce acid in your stomach. Certain problems can be treated with: ?Creams. ?Medicines that are put in the butt (suppositories). ?Warm baths. Surgery is sometimes needed. If you lose a lot of blood, you may need a blood transfusion. If bleeding is mild, you may be allowed to go home. If there is a lot of bleeding, you will need to stay in the hospital. Follow these instructions at home: Take qbzo-gla-tihgfvy and prescription medicines only as told by your doctor. Eat foods that have a lot of fiber in them. These foods include beans, whole grains, and fresh fruits and vegetables. You can also try eating 1 3 prunes each day. Drink enough fluid to keep your pee (urine) pale yellow. Keep all follow-up visits as told by your doctor. This is important. Contact a doctor if: Your symptoms do not get better. Get help right away if: Your bleeding does not stop. You feel dizzy or you pass out (faint). You feel weak. You have very bad cramps in your back or belly. You pass large clumps of blood (clots) in your poop. Your symptoms are getting worse. You have chest pain or fast heartbeats. Summary GI bleeding is bleeding somewhere along the path that food travels through the body (digestive tract). This bleeding can be caused by many things. Treatment depends on the cause of the bleeding. Take medicines only as told by your doctor. Keep all follow-up visits as told by your doctor. This is important. This information is not intended to replace advice given to you by your health care provider. Make sure you discuss any questions you have with your health care provider. Document Released: 07/27/2009 Document Revised: 05/31/2019 Document Reviewed: 05/31/2019 [employer] Patient Education [email or web address] Follow Up Care 04/01/2024 05:47:30 With:DIONNA BLUNT Address: [facility] [address] [place] [address] [phone] Business (1) When:Within 2 Week(s) Comments:Please call the office to schedule a follow-up appointment. With:CATE NELSON MD Address: [place] [address] [phone]- When:1-2 days Comments:Please call the office to schedule a follow-up appointment. [facility] 04-03-2024 Discharge summary Date of Service 04/03/2024 Discharge Diagnosis Acute upper GI bleed Healing Carolyn-Gaviria tear at the GE junction Duodenal bulb ulceration-biopsies were taken of the stomach to rule H. pylori (biopsies pending at discharge) Acute blood loss anemia requiring transfusion Hospital Course 48-year-old female presents as a transfer from ED for hematemesis, anemia. Patient had 2 episodes of vomiting with the last one midnight prior to arrival. Patient takes natural supplements but no NSAIDs. No prior similar events. Patient endorsed black/melanotic stools. Denies any pain. Course at per documentation: BMP showed glucose 144, BUN 21. Creatinine 0.6. CBC shows hemoglobin 8.9. Normal platelets and white count. LFTs showed albumin 2.9 Troponin normal. Prior CBC on 02/10/2024 showed hemoglobin 10.6. CXR showed no acute disease. CT abdomen pelvis showed proximal duodenum wall thickening and indistinct appearance given history of hematemesis concerning for PUD. US abdomen showed diffuse hepatocellular disease and slight nodularity versus artifact. Blood counts were monitored and noted to be significantly lower on presentation to [facility] hemoglobin 7.4 in light of concern for upper GI bleed and hematemesis patient was transfused 1 unit packed red blood cells benefit/risk/alternatives discussed with patient and family who state understanding and accept these risks, agreeable to transfusion. Follow-up blood counts appropriately improved to 8.0 and subsequently 8.2 which has remained stable through the remainder of the hospital stay. Patient denies any further hematemesis, no upset stomach or abdominal pain. Patient seen in consultation by gastroenterology team underwent upper endoscopy today 04/03/2024 findings: [#1 healing Carolyn-Gaviria tear at the GE junction. #2 duodenal bulb ulceration-biopsies were taken of the stomach to rule H. pylori] (report below). Gastroenterology recommending continuation of proton pump inhibitor twice daily x 3 to 4 months, biopsies were obtained today as outlined above patient to follow-up with primary care provider and gastroenterology for results and continued management. Discussed avoidance of nonsteroidal anti-inflammatory medications. Patient and family state understanding of this. Discussed continued monitoring of blood counts overnight in light of EGD findings however patient and family wish to be discharged home tonight, benefits/risk/alternatives discussed including that of morbidity mortality, patient and family state understanding of this, accept these risks and still wished to be discharged. Discussed warning signs that should prompt patient to return to the emergency department including but not limited to worsening of symptoms, patient and family state understanding and appreciation for care. Patient and family agreeable to follow-up blood work to be done at usual outpatient site and results to primary care provider for review. Patient seen examined at bedside in the presence of family at patient's request. Chart reviewed. Discussed with medical staff. Patient denies any new complaints or concerns, denies any bowel movement overnight. Denies chest pain, shortness of breath no abdominal pain, nausea or vomiting. Patient tolerating oral intake and ambulating in the hospital room states overall feels much improved and ready to go home today. Discussed with patient/family regarding recommended follow-up with providers and medication list at discharge. Discussed warning signs that should prompt patient to return to the emergency department or seek immediate medical attention, including but not limited to worsening of symptoms. Patient/family states understanding and appreciation for care. Allergies No Known Medication Allergies Procedures Date of Service April 03, 2024 Procedure Name Upper endoscopy with biopsy Findings Procedure: Upper endoscopy with biopsy Indication:[] GI bleed, hematemesis Medications:[Monitored anesthesia care] Complications: There were no complications Procedure: After obtaining informed consent and explaining the risks and benefits of an upper endoscopy including possible infection, bleeding, and perforation the upper endoscope was introduced to the mouth and advanced to third portion of the duodenum under direct vision. Throughout the procedure,the patient's blood pressure pulse and oxygen saturations were monitored continuously. The upper GI endoscopy was accomplished without difficulty. Findings:[The proximal esophagus appeared normal. In the distal esophagus the diaphragm a hiatus, gastric folds and squamocolumnar junction all met at 37 cm from incisors. At the level of the GE junction, there was a healing Carolyn-Gaviria tear that was seen. Scope was then advanced into the stomach body. The stomach body mucosa and antral mucosa appear entirely normal. Scope was then advanced into the duodenal bulb. In the duodenal bulb there was a clean-based ulceration seen measuring approximately 7 mm in its largest diameter. It was not actively bleeding and no visible vessel was seen. It did slightly ooze with fresh blood on contact. The second and third portions of the duodenum appear entirely normal. The upper endoscope was then retrieved back into the stomach body and retroflexion was performed showing normal GE junction and stomach fundus. The upper endoscope was then advanced back into the stomach body and biopsies were then taken the stomach body, antrum and incisura for H. pylori.] Impression:[#1 healing Carolyn-Gaviria tear at the GE junction #2 duodenal bulb ulceration-biopsies were taken of the stomach to rule H. pylori] Recommendations:[I will follow-up on the pathology of the biopsies that were taken for H. pylori and treat if positive. I did have a long discussion with the patient and yesterday about supplements and the potential addition of NSAIDs and supplements. This will be reiterated today. Patient should be on oral PPI therapy twice a day for least 3 to 4 months. We will reassess as an outpatient. I will start a regular diet at this time. Hemoglobin and hematocrit level have been stable. It would not be unreasonable to keep her overnight to be sure that it continues to be stable based on the size of this ulceration.] Signature Line Digitally Signed by DIONNA BLUNT MD on 04/03/2024 02:33 PM [1] Consults Consult to Physician - Ordered -- 04/01/24 19:25:00 EDT, EVERT GUALLPA MD, Routine, Hematemesis Physical Exam Vitals and Measurements T: 36.8 C (Oral) TMIN: 36.2 C (Temporal Artery) TMAX: 36.8 C (Oral) HR: 68 RR: 16 BP: 106/69 SpO2: 100% Weight Dosing Weight: 74.4 kg (04/01/24) General: awake, alert, sitting up in bedside chair, NAD HEENT: No Icterus Cardiac: S1, S2, regular Lungs: clear to auscultation Abdomen: Soft, non tender, bowel sounds present Extremities: extremities warm and dry Neurological: AAOx4 Pending Labs and Studies Final cultures/pathology pending at the time of this dictation. Follow up lab work requested as outlined above. Code Status Code Status - Ordered -- 04/01/24 19:25:00 EDT, Full Code, Constant Order Admission Date 04/01/2024 Discharge Date 04/03/2024 Patient Instructions Thank you for choosing [facility] - it has been a pleasure taking part in your medical care. Please follow up with your Primary Care Physician (PCP) as soon as possible after your discharge and any specialists as noted within 1-2 weeks for further evaluation. If your symptoms should persist or worsen, please return immediately to the nearest Emergency Room for further care. If you have any questions about the care you received please call us anytime at . Please continue Protonix twice daily. Please have blood work done in 3-5 days results will go to your primary care provider for review. Biopsies were taken during the upper endoscopy 04/03/2024, please follow up with primary care provider and [employer] for results. Please continue to avoid non steroidal anti-inflammatory drugs (Ibuprofen, Aspirin, etc). Medications New Prescription [id number] Milligram by mouth every six (6) hours WHILE AWAKE as needed Pain, scale 1-10. pantoprazole (pantoprazole 40 mg oral enteric coated tablet)1 tab(s) by mouth two (2) times daily before meals. Refills: 0. Discontinued Misc Medication (Activize) Misc Medication (Factor 5 Tranont Enzymes) Misc Medication (Generation 50+) Misc Medication (Heart Duo) Misc Medication (Munogen) Misc Medication (powercocktail) Misc Medication (Restorate) Follow Up Follow Up with DIONNA LBUNT When:In 2 weeks Where:[facility] [address] [place] [phone] [facility] (1) Additional Information: Please call the office to schedule a follow-up appointment. Follow Up with CATE NELSON MD When:Within 1-2 days Where:[facility] [address] [place] [phone]- Additional Information: Please call the office to schedule a follow-up appointment. Follow Up Appointments No qualifying data available. Follow Up Labs/Studies Discharge Labs Discharge Outpatient Labwork - Ordered -- cbc, bmp, cbc, bmp, acute blood loss anemia, hospital follow up, follow-up within: 3-5 days, Results Notify to: CATE NELSON MD, 04/03/24 17:31:00 EDT Discharge Studies No Follow-up Studies Discharge Diet Discharge Diet - Ordered -- No changes were made to your diet during your hospital stay. Please resume your pre hospitalization diet on discharge., 04/03/24 17:31:00 EDT Discharge Activity Discharge Activity - Ordered -- Activity As Tolerated, 04/03/24 17:31:00 EDT Condition on Discharge Fair Discharge Disposition Home Information Provided To Patient, family at bedside and medical staff Time Spent 36 minutes [1] Procedure Note; DIONNA BLUNT MD 04/03/2024 14:28 EDT Digitally Signed by MARCELINA MITCHELL MD on 04/03/2024 05:56 PM [facility] 04-03-2024 Note Discharge Instructions Thank you for allowing [facility] to assist you with your healthcare needs. The following is important discharge information regarding your hospital visit. Your Care Team CATE NELSON MD What to do next Instructions From Your Doctor Thank you for choosing [facility] - it has been a pleasure taking part in your medical care. Please follow up with your Primary Care Physician (PCP) as soon as possible after your discharge and any specialists as noted within 1-2 weeks for further evaluation. If your symptoms should persist or worsen, please return immediately to the nearest Emergency Room for further care. If you have any questions about the care you received please call us anytime at . Please continue Protonix twice daily. Please have blood work done in 3-5 days results will go to your primary care provider for review. Follow Up Appointments Follow Up with DIONNA BLUNT When:In 2 weeks Where:[facility] [address] [place] [phone]- [phone] [facility] (1) Additional Information: Please call the office to schedule a follow-up appointment. Follow Up with CATE NELSON MD When:Within 1-2 days Where:[facility] [address] [place] [phone]- Additional Information: Please call the office to schedule a follow-up appointment. The Following Activity and Diet Have Been Ordered for You Discharge Activity - Ordered -- Activity As Tolerated, 04/03/24 17:31:00 EDT Discharge Diet - Ordered -- No changes were made to your diet during your hospital stay. Please resume your pre hospitalization diet on discharge., 04/03/24 17:31:00 EDT The Following Equipment Has Been Ordered for You No qualifying data available. The Following Treatments Have Been Ordered for You Discharge Labs Discharge Outpatient Labwork - Ordered -- cbc, bmp, cbc, bmp, acute blood loss anemia, hospital follow up, follow-up within: 3-5 days, Results Notify to: CATE NELSON MD, 04/03/24 17:31:00 EDT Discharge Radiology No qualifying data available. Other Therapies No qualifying data available. Post Acute Orders No qualifying data available. Someone Will Contact You Regarding These Home Health Referrals No home referrals have been ordered for you. No one will call you. Allergies No Known Medication Allergies Medications Please ask your primary doctor or pharmacist before taking any other medication not listed, including over the counter drugs, herbal medications, vitamins and or supplements as they may interact with your home medications. What How Much When Instructions Last Dose New acetaminophen 650 Milligram by mouth Every six (6) hours WHILE AWAKE as needed for Pain, scale 1-10 New pantoprazole (pantoprazole 40 mg oral enteric coated tablet) 1 tab(s) by mouth Two (2) times daily before meals Pickup at [facility] Pharmacy Information [facility]: [address] [place] [phone] What When Comments Stop Taking Misc Medication (Activize) Stop Taking Misc Medication (Factor 5 Tranont Enzymes) Stop Taking Misc Medication (Generation 50+) Stop Taking Misc Medication (Heart Duo) Stop Taking Misc Medication (Munogen) Stop Taking Misc Medication (powercocktail) Stop Taking Misc Medication (Restorate) Please take this list to your next doctor s visit. Bring all medications you take, including over the counter medications, herbals and other supplements with you to your doctor s visit. Patients and families are reminded to discard old lists and to update any records with all medication providers or retail pharmacies. Education Materials Gastrointestinal Bleeding Gastrointestinal (GI) bleeding is bleeding somewhere along the path that food travels through the body (digestive tract). This path is anywhere between the mouth and the opening of the butt (anus). You may have blood in your poop (stool) or have black poop. If you throw up (vomit), there may be blood in it. This condition can be mild, serious, or even life-threatening. If you have a lot of bleeding, you may need to stay in the hospital. What are the causes? This condition may be caused by: Irritation and swelling of the esophagus (esophagitis). The esophagus is part of the body that moves food from your mouth to your stomach. Swollen veins in the butt (hemorrhoids). Areas of painful tearing in the opening of the butt (anal fissures). These are often caused by passing hard poop. Pouches that form on the colon over time (diverticulosis). Irritation and swelling (diverticulitis) in areas where pouches have formed on the colon. Growths (polyps) or cancer. Colon cancer often starts out as growths that are not cancer. Irritation of the stomach lining (gastritis). Sores (ulcers) in the stomach. What increases the risk? You are more likely to develop this condition if you: Have a certain type of infection in your stomach (Helicobacter pylori infection). Take certain medicines. Smoke. Drink alcohol. What are the signs or symptoms? Common symptoms of this condition include: Throwing up (vomiting) material that has bright red blood in it. It may look like coffee grounds. Changes in your poop. The poop may: ? Have red blood in it. ? Be black, look like tar, and smell stronger than normal. ? Be red. Pain or cramping in the belly (abdomen). How is this treated? Treatment for this condition depends on the cause of the bleeding. For example: Sometimes, the bleeding can be stopped during a procedure that is done to find the problem (endoscopy or colonoscopy). Medicines can be used to: ? Help control irritation, swelling, or infection. ? Reduce acid in your stomach. Certain problems can be treated with: ? Creams. ? Medicines that are put in the butt (suppositories). ? Warm baths. Surgery is sometimes needed. If you lose a lot of blood, you may need a blood transfusion. If bleeding is mild, you may be allowed to go home. If there is a lot of bleeding, you will need to stay in the hospital. Follow these instructions at home: Take rewf-ywp-lddwhnz and prescription medicines only as told by your doctor. Eat foods that have a lot of fiber in them. These foods include beans, whole grains, and fresh fruits and vegetables. You can also try eating 1 3 prunes each day. Drink enough fluid to keep your pee (urine) pale yellow. Keep all follow-up visits as told by your doctor. This is important. Contact a doctor if: Your symptoms do not get better. Get help right away if: Your bleeding does not stop. You feel dizzy or you pass out (faint). You feel weak. You have very bad cramps in your back or belly. You pass large clumps of blood (clots) in your poop. Your symptoms are getting worse. You have chest pain or fast heartbeats. Summary GI bleeding is bleeding somewhere along the path that food travels through the body (digestive tract). This bleeding can be caused by many things. Treatment depends on the cause of the bleeding. Take medicines only as told by your doctor. Keep all follow-up visits as told by your doctor. This is important. This information is not intended to replace advice given to you by your health care provider. Make sure you discuss any questions you have with your health care provider. Document Released: 07/27/2009 Document Revised: 05/31/2019 Document Reviewed: 05/31/2019 Elsevier Patient Education 2020 [employer] Additional Information VACCINATE! IT SAVES LIVES! Members of the community who have not yet received the COVID-19 vaccine and would like to receive it can visit one of [facility] vaccine clinics. There are many vaccine clinic locations within the [facility]. For locations and available times, please visit https://gettheshot.coronavirus.[place] .gov/. It is important to note that some COVID mobile vaccine clinics are held outdoors and may be canceled in rainy or stormy conditions. To learn more about pediatric vaccinations (ages 5-11), we invite you to visit the [employer] webpage. https://www.[employer].org/page s/6801-Aonfa-Vhghnhpujjt-Frequently -Asked-Questions.html To learn more about the COVID-19 vaccine, we invite you to visit the CDC website for a list of frequently asked questions.https://www.cdc.gov/coron avirus/2019-ncov/vaccines/faq.html [employer] Patient Portal Access Instructions: Stay connected with your healthcare team and access your personal medical information anytime with the [employer] Patient Portal. Please follow the directions below to create your [employer] account: 1.Access the email account you provided upon registration to the hospital/physician office.2.Look for an invitation email from [facility].3.Open the email and access the invitation link: Accept Invitation to [employer].4.Fill in the required eugene to create your account. To access your account, visit [email or web address]. Click the blue button labeled Access Patient Portal and then log in with the username and password that you created in the steps above. You will be able to view your test results, lab results, a summary of your visits, upcoming appointments and more. There is also a convenient messaging option where you can send secure messages to your provider. In addition, you will have the ability to download any documents or summaries to your computer and/or send the information securely to a physician. Remember that your healthcare information is confidential, so carefully consider who you will allow to register on the [employer] [facility] Patient Portal for access to your information. You can also access the [facility] Patient Portal on the [facility] fernanda. Simply click on Patient Portal and then log into your account. If you would like to receive a full copy of your medical records, please contact the [facility] Medical Records Department by calling [phone], Wednesday through Wednesday between 8 a.m. and 4:30 p.m. HOW TO SAFELY DISPOSE OF PRESCRIPTION MEDICATIONS Please use one of the following methods to safely dispose of your unused medications. 1.Use a drug disposal kit: the drug disposal pouch allows you to safely discard your old and unused drugs. Ask your nurse to give you one when you are discharged.2.Visit a local take-back location: Many local pharmacies and police departments have programs that collect old and unwanted prescription drugs. Call your local pharmacy or go to http://SETVI/5Z1Ut9y to find one close to you.3.Make use of household items: Use cat litter or old coffee grounds to dispose medications if other options are not available. Mix your drugs with these household products, seal them in an airtight container and throw it into the garbage. Call [facility]: [phone] to be sure your drugs can be disposed of in this way. Some medicines may require a different approach.4.Never flush your medications down the toilet. IF YOU HAVE BEEN PRESCRIBED AN OPIOID FOR PAIN If you have been prescribed an opioid (such as hydrocodone, oxycodone or morphine), it is critical to understand the possible side effects and risks of opioid pain medications. Even when taken as directed, opioids can have several side effects including: Tolerance, meaning you might need to take more of a medication for the same pain relief. Nausea, vomiting and/or constipation. Sleepiness, dizziness, dry mouth, confusion, depression or itching. Physical dependence, meaning you have withdrawal symptoms when a medication is stopped, can develop within a few days. KNOW YOUR RESPONSIBILITIES It is important to know exactly how much and how often to take the opioid pain medications you are prescribed. Never take opioids in higher amounts or more often than prescribed. Do not combine opioids with alcohol or other drugs that cause drowsiness, such as benzodiazepines, also known as benzos, including diazepam and alprazolam, muscle relaxants or sleep aids. Never sell or share prescription opioids. This is illegal. Store opioids in a secure place and out of reach of others (including children, family, friends and visitors). The last page of this document has been signed and retained as a CHART COPY. Signatures Patient Education Materials Gastrointestinal Bleeding, [id number] Medication Leaflets My discharge plan and instructions have been reviewed and explained to me and I,FREEMAN HAYS understand my current condition and have read and understand these discharge instructions. I have received a written copy of the plan/instructions. If I have questions, I am aware that I should contact my doctor. 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 The following is important discharge information regarding your hospital visit. Your Care Team CATE NELSON MD What to do next Follow Up Appointments Follow Up with DIONNA BLUNT When:In 2 weeks Where:[facility] [address] [place] [phone] [facility] (1) Additional Information: Please call the office to schedule a follow-up appointment. Follow Up with CATE NELSON MD When:Within 1-2 days Where:[facility] [address] [place] [address]- Additional Information: Please call the office to schedule a follow-up appointment. The Following Activity and Diet Have Been Ordered for You Discharge Activity - Ordered -- Activity As Tolerated, 04/03/24 17:31:00 EDT Discharge Diet - Ordered -- No changes were made to your diet during your hospital stay. Please resume your pre hospitalization diet on discharge., 04/03/24 17:31:00 EDT The Following Equipment Has Been Ordered for You No qualifying data available. The Following Treatments Have Been Ordered for You Discharge Labs Discharge Outpatient Labwork - Ordered -- cbc, bmp, cbc, bmp, acute blood loss anemia, hospital follow up, follow-up within: 3-5 days, Results Notify to: CATE NELSON MD, 04/03/24 17:31:00 EDT Discharge Radiology No qualifying data available. Other Therapies No qualifying data available. Post Acute Orders No qualifying data available. Someone Will Contact You Regarding These Home Health Referrals No home referrals have been ordered for you. No one will call you. Allergies No Known Medication Allergies Medications Please ask your primary doctor or pharmacist before taking any other medication not listed, including over the counter drugs, herbal medications, vitamins and or supplements as they may interact with your home medications. What How Much When Instructions Last Dose New acetaminophen 650 Milligram by mouth Every six (6) hours WHILE AWAKE as needed for Pain, scale 1-10 New pantoprazole (pantoprazole 40 mg oral enteric coated tablet) 1 tab(s) by mouth Two (2) times daily before meals Pickup at [facility] Pharmacy Information [facility]: [address] [place] [phone] What When Comments Stop Taking Misc Medication (Activize) Stop Taking Misc Medication (Factor 5 Tranont Enzymes) Stop Taking Misc Medication (Generation 50+) Stop Taking Misc Medication (Heart Duo) Stop Taking Misc Medication (Munogen) Stop Taking Misc Medication (powercocktail) Stop Taking Misc Medication (Restorate) Please take this list to your next doctor s visit. Bring all medications you take, including over the counter medications, herbals and other supplements with you to your doctor s visit. Patients and families are reminded to discard old lists and to update any records with all medication providers or retail pharmacies. Education Materials Gastrointestinal Bleeding Gastrointestinal (GI) bleeding is bleeding somewhere along the path that food travels through the body (digestive tract). This path is anywhere between the mouth and the opening of the butt (anus). You may have blood in your poop (stool) or have black poop. If you throw up (vomit), there may be blood in it. This condition can be mild, serious, or even life-threatening. If you have a lot of bleeding, you may need to stay in the hospital. What are the causes? This condition may be caused by: Irritation and swelling of the esophagus (esophagitis). The esophagus is part of the body that moves food from your mouth to your stomach. Swollen veins in the butt (hemorrhoids). Areas of painful tearing in the opening of the butt (anal fissures). These are often caused by passing hard poop. Pouches that form on the colon over time (diverticulosis). Irritation and swelling (diverticulitis) in areas where pouches have formed on the colon. Growths (polyps) or cancer. Colon cancer often starts out as growths that are not cancer. Irritation of the stomach lining (gastritis). Sores (ulcers) in the stomach. What increases the risk? You are more likely to develop this condition if you: Have a certain type of infection in your stomach (Helicobacter pylori infection). Take certain medicines. Smoke. Drink alcohol. What are the signs or symptoms? Common symptoms of this condition include: Throwing up (vomiting) material that has bright red blood in it. It may look like coffee grounds. Changes in your poop. The poop may: ? Have red blood in it. ? Be black, look like tar, and smell stronger than normal. ? Be red. Pain or cramping in the belly (abdomen). How is this treated? Treatment for this condition depends on the cause of the bleeding. For example: Sometimes, the bleeding can be stopped during a procedure that is done to find the problem (endoscopy or colonoscopy). Medicines can be used to: ? Help control irritation, swelling, or infection. ? Reduce acid in your stomach. Certain problems can be treated with: ? Creams. ? Medicines that are put in the butt (suppositories). ? Warm baths. Surgery is sometimes needed. If you lose a lot of blood, you may need a blood transfusion. If bleeding is mild, you may be allowed to go home. If there is a lot of bleeding, you will need to stay in the hospital. Follow these instructions at home: Take pxgz-sos-gbaqydl and prescription medicines only as told by your doctor. Eat foods that have a lot of fiber in them. These foods include beans, whole grains, and fresh fruits and vegetables. You can also try eating 1 3 prunes each day. Drink enough fluid to keep your pee (urine) pale yellow. Keep all follow-up visits as told by your doctor. This is important. Contact a doctor if: Your symptoms do not get better. Get help right away if: Your bleeding does not stop. You feel dizzy or you pass out (faint). You feel weak. You have very bad cramps in your back or belly. You pass large clumps of blood (clots) in your poop. Your symptoms are getting worse. You have chest pain or fast heartbeats. Summary GI bleeding is bleeding somewhere along the path that food travels through the body (digestive tract). This bleeding can be caused by many things. Treatment depends on the cause of the bleeding. Take medicines only as told by your doctor. Keep all follow-up visits as told by your doctor. This is important. This information is not intended to replace advice given to you by your health care provider. Make sure you discuss any questions you have with your health care provider. Document Released: 07/27/2009 Document Revised: 05/31/2019 Document Reviewed: 05/31/2019 [employer] Patient Education 2020 [employer]. Additional Information VACCINATE! IT SAVES LIVES! Members of the community who have not yet received the COVID-19 vaccine and would like to receive it can visit one of [facility] vaccine clinics. There are many vaccine clinic locations within the [facility]. For locations and available times, please visit [email or web address].[email or web address] .[email or web address] It is important to note that some COVID mobile vaccine clinics are held outdoors and may be canceled in rainy or stormy conditions. To learn more about pediatric vaccinations (ages 5-11), we invite you to visit the [facility] webpage. [email or web address] -[email or web address] To learn more about the COVID-19 vaccine, we invite you to visit the CDC website for a list of frequently asked questions.https://www.cdc.gov/coron avirus/2019-ncov/vaccines/faq.html [facility] Patient Portal Access Instructions: Stay connected with your healthcare team and access your personal medical information anytime with the [employer] Patient Portal. Please follow the directions below to create your [facility] account: 1.Access the email account you provided upon registration to the hospital/physician office.2.Look for an invitation email from [facility].3.Open the email and access the invitation link: Accept Invitation to [facility]4.Fill in the required eugene to create your account. To access your account, visit [email or web address]. Click the blue button labeled Access Patient Portal and then log in with the username and password that you created in the steps above. You will be able to view your test results, lab results, a summary of your visits, upcoming appointments and more. There is also a convenient messaging option where you can send secure messages to your provider. In addition, you will have the ability to download any documents or summaries to your computer and/or send the information securely to a physician. Remember that your healthcare information is confidential, so carefully consider who you will allow to register on the [facility] Patient Portal for access to your information. You can also access the [facility] Patient Portal on the [facility] fernanda. Simply click on Patient Portal and then log into your account. If you would like to receive a full copy of your medical records, please contact the [facility] Medical Records Department by calling [phone], Wednesday through Wednesday between 8 a.m. and 4:30 p.m. HOW TO SAFELY DISPOSE OF PRESCRIPTION MEDICATIONS Please use one of the following methods to safely dispose of your unused medications. 1.Use a drug disposal kit: the drug disposal pouch allows you to safely discard your old and unused drugs. Ask your nurse to give you one when you are discharged.2.Visit a local take-back location: Many local pharmacies and police departments have programs that collect old and unwanted prescription drugs. Call your local pharmacy or go to http://bit.ly/0G3Ag7h to find one close to you.3.Make use of household items: Use cat litter or old coffee grounds to dispose medications if other options are not available. Mix your drugs with these household products, seal them in an airtight container and throw it into the garbage. Call [facility]: [phone] to be sure your drugs can be disposed of in this way. Some medicines may require a different approach.4.Never flush your medications down the toilet. IF YOU HAVE BEEN PRESCRIBED AN OPIOID FOR PAIN If you have been prescribed an opioid (such as hydrocodone, oxycodone or morphine), it is critical to understand the possible side effects and risks of opioid pain medications. Even when taken as directed, opioids can have several side effects including: Tolerance, meaning you might need to take more of a medication for the same pain relief. Nausea, vomiting and/or constipation. Sleepiness, dizziness, dry mouth, confusion, depression or itching. Physical dependence, meaning you have withdrawal symptoms when a medication is stopped, can develop within a few days. KNOW YOUR RESPONSIBILITIES It is important to know exactly how much and how often to take the opioid pain medications you are prescribed. Never take opioids in higher amounts or more often than prescribed. Do not combine opioids with alcohol or other drugs that cause drowsiness, such as benzodiazepines, also known as benzos, including diazepam and alprazolam, muscle relaxants or sleep aids. Never sell or share prescription opioids. This is illegal. Store opioids in a secure place and out of reach of others (including children, family, friends and visitors). The last page of this document has been signed and retained as a CHART COPY. Signatures Patient Education Materials Gastrointestinal Bleeding, [id number] Medication Leaflets My discharge plan and instructions have been reviewed and explained to me and I,FREEMAN HAYS understand my current condition and have read and understand these discharge instructions. I have received a written copy of the plan/instructions. If I have questions, I am aware that I should contact my doctor. 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 Patient location: PACU. Assessment Postanesthesia assessment Vitals: Vital signs from flowsheet : Vital Signs 04/03/2024 14:44 EDT Temperature Temporal Artery 36.3 DegC Heart Rate Monitored 80 bpm Respiratory Rate 20 br/min Systolic Blood Pressure Non-Invasive 107 mmHg Diastolic Blood Pressure Non-Invasive 59 mmHg LOW Mean Arterial Pressure (NBP) 74 mmHg 04/03/2024 14:32 EDT Heart Rate Monitored 72 bpm Respiratory Rate 20 br/min 04/03/2024 14:28 EDT Temperature Temporal Artery 36.2 DegC Heart Rate Monitored 70 bpm Respiratory Rate 20 br/min Systolic Blood Pressure Non-Invasive 93 mmHg Diastolic Blood Pressure Non-Invasive 37 mmHg Mean Arterial Pressure (NBP) 53 mmHg 04/03/2024 14:25 EDT Respiratory Rate - Anes 21 br/min br/min 04/03/2024 14:23 EDT Systolic Blood Pressure Non-Invasive 128 mmHg mmHg Diastolic Blood Pressure Non-Invasive 71 mmHg mmHg 04/03/2024 14:20 EDT Heart Rate Monitored 66 bpm bpm Respiratory Rate - Anes 16 br/min br/min Systolic Blood Pressure Non-Invasive 115 mmHg mmHg Diastolic Blood Pressure Non-Invasive 62 mmHg mmHg 04/03/2024 14:18 EDT Systolic Blood Pressure Non-Invasive 86 mmHg mmHg Diastolic Blood Pressure Non-Invasive 50 mmHg mmHg 04/03/2024 14:15 EDT Temperature (Route Not Specified) 36.5 DegC DegC Heart Rate Monitored 86 bpm bpm Respiratory Rate - Anes 16 br/min br/min Systolic Blood Pressure Non-Invasive 111 mmHg mmHg Diastolic Blood Pressure Non-Invasive 70 mmHg mmHg 04/03/2024 11:25 EDT Temperature Oral 36.7 DegC Peripheral Pulse Rate 62 bpm Respiratory Rate 18 br/min Systolic Blood Pressure Non-Invasive 99 mmHg Diastolic Blood Pressure Non-Invasive 52 mmHg LOW Blood Pressure Method Automatic Blood Pressure Location Right arm Blood Pressure Cuff Size Medium Reason For Taking VItal Signs Routine 04/03/2024 7:02 EDT Temperature Oral 36.7 DegC Peripheral Pulse Rate 66 bpm Respiratory Rate 20 br/min Systolic Blood Pressure Non-Invasive 103 mmHg Diastolic Blood Pressure Non-Invasive 60 mmHg Blood Pressure Method Automatic Blood Pressure Location Right arm Blood Pressure Cuff Size Medium Reason For Taking VItal Signs Routine 04/03/2024 3:19 EDT Temperature Oral 36.7 DegC Peripheral Pulse Rate 64 bpm Respiratory Rate 18 br/min Systolic Blood Pressure Non-Invasive 97 mmHg Diastolic Blood Pressure Non-Invasive 63 mmHg Blood Pressure Method Automatic Blood Pressure Location Right arm Reason For Taking VItal Signs Routine 04/02/2024 22:34 EDT Temperature Oral 36.6 DegC Peripheral Pulse Rate 71 bpm Respiratory Rate 16 br/min Systolic Blood Pressure Non-Invasive 108 mmHg Diastolic Blood Pressure Non-Invasive 63 mmHg Blood Pressure Method Automatic Blood Pressure Location Right arm Reason For Taking VItal Signs Routine 04/02/2024 18:17 EDT Temperature Oral 36.8 DegC Peripheral Pulse Rate 74 bpm Respiratory Rate 16 br/min Systolic Blood Pressure Non-Invasive 103 mmHg Diastolic Blood Pressure Non-Invasive 60 mmHg Blood Pressure Method Automatic Blood Pressure Location Right arm Reason For Taking VItal Signs Routine 04/02/2024 14:17 EDT Temperature Oral 36.6 DegC Peripheral Pulse Rate 78 bpm Respiratory Rate 16 br/min Systolic Blood Pressure Non-Invasive 106 mmHg Diastolic Blood Pressure Non-Invasive 68 mmHg Blood Pressure Method Automatic Blood Pressure Location Left arm Blood Pressure Cuff Size Medium Reason For Taking VItal Signs Routine 04/02/2024 11:58 EDT Temperature Oral 36.3 DegC Peripheral Pulse Rate 74 bpm Respiratory Rate 16 br/min Systolic Blood Pressure Non-Invasive 112 mmHg Diastolic Blood Pressure Non-Invasive 70 mmHg Blood Pressure Method Automatic Blood Pressure Location Right arm Blood Pressure Cuff Size Medium Reason For Taking VItal Signs Routine 04/02/2024 6:58 EDT Temperature Oral 36.6 DegC Peripheral Pulse Rate 71 bpm Respiratory Rate 16 br/min Systolic Blood Pressure Non-Invasive 102 mmHg Diastolic Blood Pressure Non-Invasive 67 mmHg 04/02/2024 4:26 EDT Temperature Oral 36.5 DegC Peripheral Pulse Rate 77 bpm Respiratory Rate 16 br/min Systolic Blood Pressure 103 mmHg Diastolic Blood Pressure 67 mmHg Systolic Blood Pressure Non-Invasive 103 mmHg Diastolic Blood Pressure Non-Invasive 67 mmHg Signs/Symptoms Transfusion Reaction No 04/02/2024 4:25 EDT Signs/Symptoms Transfusion Reaction No 04/02/2024 4:14 EDT Signs/Symptoms Transfusion Reaction No 04/02/2024 3:45 EDT Signs/Symptoms Transfusion Reaction No 04/02/2024 3:23 EDT Signs/Symptoms Transfusion Reaction No 04/02/2024 3:17 EDT Signs/Symptoms Transfusion Reaction No 04/02/2024 2:47 EDT Signs/Symptoms Transfusion Reaction No 04/02/2024 2:17 EDT Temperature Oral 36.5 DegC Peripheral Pulse Rate 88 bpm Respiratory Rate 14 br/min Systolic Blood Pressure 108 mmHg Diastolic Blood Pressure 66 mmHg Systolic Blood Pressure Non-Invasive 108 mmHg Diastolic Blood Pressure Non-Invasive 66 mmHg Signs/Symptoms Transfusion Reaction No 04/02/2024 1:46 EDT Temperature Oral 36.8 DegC Peripheral Pulse Rate 83 bpm Respiratory Rate 16 br/min Systolic Blood Pressure Non-Invasive 106 mmHg Diastolic Blood Pressure Non-Invasive 69 mmHg Reason For Taking VItal Signs Pre-transfusion . Mental status: at preoperative baseline. Respiratory function: respirations are non-labored, stable. Respiratory support: none. CV function: stable. Cardiovascular support: none. Pain: satisfactory. Nausea status: satisfactory. Postoperative hydration status: within normal limits. Notes: Patient is sufficiently recovered from anesthesia to participate in the evaluation. No follow-up care needed. No complications post-anesthesia.. Digitally Signed by LAURENT LUNDBERG MD on 04/03/2024 02:58 PM [facility] 04-03-2024 Note Date of Service April 03, 2024 Procedure Name Upper endoscopy with biopsy Findings Procedure: Upper endoscopy with biopsy Indication:[] GI bleed, hematemesis Medications:[Monitored anesthesia care] Complications: There were no complications Procedure: After obtaining informed consent and explaining the risks and benefits of an upper endoscopy including possible infection, bleeding, and perforation the upper endoscope was introduced to the mouth and advanced to third portion of the duodenum under direct vision. Throughout the procedure,the patient's blood pressure pulse and oxygen saturations were monitored continuously. The upper GI endoscopy was accomplished without difficulty. Findings:[The proximal esophagus appeared normal. In the distal esophagus the diaphragm a hiatus, gastric folds and squamocolumnar junction all met at 37 cm from incisors. At the level of the GE junction, there was a healing Carolyn-Gaviria tear that was seen. Scope was then advanced into the stomach body. The stomach body mucosa and antral mucosa appear entirely normal. Scope was then advanced into the duodenal bulb. In the duodenal bulb there was a clean-based ulceration seen measuring approximately 7 mm in its largest diameter. It was not actively bleeding and no visible vessel was seen. It did slightly ooze with fresh blood on contact. The second and third portions of the duodenum appear entirely normal. The upper endoscope was then retrieved back into the stomach body and retroflexion was performed showing normal GE junction and stomach fundus. The upper endoscope was then advanced back into the stomach body and biopsies were then taken the stomach body, antrum and incisura for H. pylori.] Impression:[#1 healing Carolyn-Gaviria tear at the GE junction #2 duodenal bulb ulceration-biopsies were taken of the stomach to rule H. pylori] Recommendations:[I will follow-up on the pathology of the biopsies that were taken for H. pylori and treat if positive. I did have a long discussion with the patient and yesterday about supplements and the potential addition of NSAIDs and supplements. This will be reiterated today. Patient should be on oral PPI therapy twice a day for least 3 to 4 months. We will reassess as an outpatient. I will start a regular diet at this time. Hemoglobin and hematocrit level have been stable. It would not be unreasonable to keep her overnight to be sure that it continues to be stable based on the size of this ulceration.] Digitally Signed by DIONNA BLUNT MD on 04/03/2024 02:33 PM [facility] 04-03-2024 Anesthesiology Consult note Patient: FREEMAN HAYS Age: 48 years Sex: Female : 1975 Associated Diagnoses: None Author: ADRIANA HILL MD Preoperative Information > 8 hours Anesthesia history Patient's history: negative. Family's history: negative. Health Status Allergies: Allergic Reactions (Selected) No Known Medication Allergies, Allergies (1) ActiveSeverityReaction No Known Medication AllergiesNone Documented Current medications: (Selected) Inpatient Medications Ordered Dextrose 50% IV Push: 12.5 gram(s), 25 mL, IV Push, AsDirected, PRN: Hypoglycemia LR 1,000 mL: 100 mL/hr, Intravenous Protonix IV Push: 40 mg, IV Push, BID Zofran: 4 mg, 2 mL, IV Push, q4h, PRN: Nausea/Vomiting acetaminophen: 650 mg, 2 tab(s), Oral, q6hWA, PRN: Pain, scale 1-10 melatonin: 3 mg, 1 tab(s), Oral, qHS, PRN: Sleep melatonin: 3 mg, 1 tab(s), Oral, qHS, PRN: Sleep Documented Medications Documented Activize: 0 Refill(s) Factor 5 Tranont Enzymes: 0 Refill(s) Generation 50+: 0 Refill(s) Heart Duo: 0 Refill(s) Munogen: 0 Refill(s) Restorate: 0 Refill(s) powercocktail: 0 Refill(s), Medications (7) Active Scheduled: (1) pantoprazole 40 mg VIAL 40 mg, IV Push, BID Continuous: (1) Lactated Ringers 1,000 mL 1,000 mL, Intravenous, 100 mL/hr PRN: (5) acetaminophen 325 mg Tablet 650 mg 2 tab(s), Oral, q6hWA dextrose 50% Solution Disp syringe 50 mL 12.5 gram(s) 25 mL, IV Push, AsDirected melatonin 3 mg tablet 3 mg 1 tab(s), Oral, qHS melatonin 3 mg tablet 3 mg 1 tab(s), Oral, qHS ondansetron 2 mg/ 1 mL 2 mL INJ 4 mg 2 mL, IV Push, q4h Problem list: Active Problems (1) No Chronic Problems Histories Past Medical History: No active or resolved past medical history items have been selected or recorded. Procedure history: delivery ([id number]). Social History: Social & Psychosocial Habits Alcohol 02/02/2024 Use: Never Substance Abuse 02/02/2024 Use: Never Tobacco 02/02/2024 Tobacco Use: Never (less than 100 in l Physical Examination General: Alert and oriented, No acute distress. Airway: Mallampati classification: II (soft palate, fauces, uvula visible). Head: Normocephalic, Atraumatic. Dentition Evaluation: Intact, Own teeth. Respiratory: Lungs are clear to auscultation, Respirations are non-labored. Cardiovascular: Normal rate. Heart Sounds: Normal. Neurologic: Alert, Oriented. Review / Management Documentation reviewed: Current records, Reviewed prior records. Assessment and Plan [employer] [employer] (ASA) physical status classification: Class II. Anesthetic Preoperative Plan Anesthetic technique: MAC. Induction: intravenously. Maintenance airway: NC. Postoperative pain management: Per surgeon. Risks discussed: nausea, vomiting, headache, sore throat, dental injury, hypotension, allergic reaction, serious complications. Informed consent: signed by patient. Digitally Signed by ADRIANA HILL MD on 04/03/2024 01:06 PM [facility] 04-02-2024 Note Date of Service 04/02/2024 Chief Complaint Upper GI Bleed, Acute blood loss anemia Subjective 48-year-old female presents as a transfer from ED for vomiting. History is obtained by my colleague who accepted the patient, patient, chart review. Patient had 2 episodes of vomiting with the last one midnight prior to arrival. Described by family member as a lot. She takes natural supplements but no NSAIDs. No prior similar events. No changes in bowel patterns. She denies any pain. Course at : BMP showed glucose 144, BUN 21. Creatinine 0.6. CBC shows hemoglobin 8.9. Normal platelets and white count. LFTs showed albumin 2.9 Troponin normal. Prior CBC on 02/10/2024 showed hemoglobin 10.6. CXR showed no acute disease. CT abdomen pelvis showed proximal duodenum wall thickening and indistinct appearance given history of hematemesis concerning for PUD. US abdomen showed diffuse hepatocellular disease and slight nodularity versus artifact. [1] Patient seen examined at bedside in the presence of family at patient's request. Chart reviewed. Discussed with medical staff. Patient denies any new complaints or concerns, endorses melanotic stools overnight. Currently denies chest pain, shortness of breath no abdominal pain, nausea or vomiting. Objective Vitals and Measurements T: 36.6 C (Oral) TMIN: 36.3 C (Oral) TMAX: 37.3 C (Oral) HR: 78 RR: 16 BP: 106/68 SpO2: 100% HT: 157 cm WT: 74.4 kg BMI: 30.18 Intake and Output 7AM Yesterday to 7AM Today Intake and Output (Last 24 hours) Intake Red Blood Cells Amount Transfused 400.00 Oral Intake 50.00 Output Stool Count 1.00 Urine Count 7.00 Total Summary Total Intake 450.00 Total Output 0.00 Fluid Balance 450.00 Physical Exam General: awake, alert HEENT: No Icterus Cardiac: S1, S2, regular Lungs: clear to auscultation Abdomen: Soft, Non tender, bowel sounds present Extremities: extremities warm and dry Neurological: AAOx4 Weight Dosing Weight: 74.4 kg (04/01/24) Medications Medications (7) Active Scheduled: (1) pantoprazole 40 mg VIAL 40 mg, IV Push, BID Continuous: (1) Lactated Ringers 1,000 mL 1,000 mL, Intravenous, 100 mL/hr PRN: (5) acetaminophen 325 mg Tablet 650 mg 2 tab(s), Oral, q6hWA dextrose 50% Solution Disp syringe 50 mL 12.5 gram(s) 25 mL, IV Push, AsDirected melatonin 3 mg tablet 3 mg 1 tab(s), Oral, qHS melatonin 3 mg tablet 3 mg 1 tab(s), Oral, qHS ondansetron 2 mg/ 1 mL 2 mL INJ 4 mg 2 mL, IV Push, q4h Lab Results 04/02 13:23 WBC: 4.5 Hgb: 8.0 L Hct: 24.2 L Platelet: 204 Neutrophil %: 56.9 04/02 05:52 Glucose Level: 89 Sodium Level: 141 Potassium Level: 4.0 BUN: 25.0 H Creatinine Lvl (s): 0.67 04/01 20:33 Hgb: 7.4 L EKG No qualifying data available. Assessment/Plan Acute GI bleed Concern for upper GI bleed Acute blood loss anemia requiring transfusion Multiple supplement use PLAN: GI team on consultation tentative plan is for upper endoscopy their input is appreciated. Patient continues IV PPI. Continue monitor blood counts patient required 1 unit packed red blood cells secondary to significant drop in blood counts in the setting of GI bleeding. Benefit/risk/alternatives to blood transfusion discussed extensively with patient and family was at bedside who state understanding and accept these risks and wished to proceed with blood transfusion. AM labs requested DVT prophylaxis with SCDs in the setting of bleeding CODE STATUS full code Prognosis remains guarded The above discussed patient family members at bedside at patient's request today. Patient family state understanding and agreement with plan. Discussed with medical staff. Questions sought and answered. Anticipated Date of Discharge 1-2 days pending clinical course [1] History and Physical; WINSOME BLAKELY MD 04/01/2024 19:10 EDT Digitally Signed by MARCELINA MITCHELL MD on 04/02/2024 03:52 PM [facility] 04-02-2024 Gastroenterology Consult note Date of Service April 02, 2024 Reason for Consultation GI bleeding, hematemesis History of Present Illness This is a 48-year-old woman who is otherwise healthy with no some past medical history who only takes multiple supplements at home who came in with 2 episodes of vomiting early in the morning yesterday. Patient states that it woke her from sleep and she went to the restroom to vomit. She states that the first episode appeared to be pretty normal but she could not see but it was since it was dark with a second episode there was some bright red blood. Patient denies any NSAID use. Because of this bloody emesis she presented to the outside hospital where further evaluation was performed showing evidence of anemia and a CT scan was performed showing an abnormality in the proximal duodenum concerning for possibly peptic ulcer disease. Patient was transferred here to [facility] for further evaluation. Patient states her last bowel movement was yesterday and it was darkish. Patient has been hemodynamically stable. She has been transfused 1 unit packed red blood cells. Patient has never received an upper endoscopy or colonoscopy in the past. Review of Systems A complete 10 review of systems was performed. The pertinent positive the HPI. The remainder were negative. Physical Exam Vitals and Measurements T: 36.6 C (Oral) TMIN: 36.5 C (Oral) TMAX: 37.3 C (Oral) HR: 71 RR: 16 BP: 102/67 SpO2: 100% HT: 157 cm WT: 74.4 kg BMI: 30.18 Weight Dosing Weight: 74.4 kg (04/01/24) General: Pt is comfortable lying down in no distress. HEENT: Normocephalic, atraumatic, sclera was white, no nodes were appreciated in the neck, trachea is midline. Cardiac: Regular rate and rhythm, there are no murmurs Lungs: Clear to auscultation, no rales no rhonchi or wheezing Abdomen: Soft, nondistended, positive bowel sounds, no obvious masses or pulsatile masses Musculoskeletal: 5 out of 5 upper and lower extremity strength bilaterally Neurological: There were no focal neurological deficits. Psychiatric: Patient was alert and oriented 3 Lab Results 04/02 05:52 Glucose Level: 89 Sodium Level: 141 Potassium Level: 4.0 BUN: 25.0 H Creatinine Lvl (s): 0.67 04/01 20:33 Hgb: 7.4 L Assessment/Plan Hematemesis/GI bleed-patient had a bloody emesis with concerning findings on the CT scan for peptic ulcer disease. Although the patient denies any chronic NSAID use she does take multiple supplements of unclear ingredients. She denies any history of chronic GI problems. We will proceed to an upper endoscopy for further evaluation. The risk and benefits have been explained. Problem List/Past Medical History Ongoing No chronic problems Procedure/Surgical History delivery Medications Inpatient acetaminophen, 650 mg= 2 tab(s), Oral, q6hWA, PRN Dextrose 50% IV Push, 12.5 gram(s)= 25 mL, IV Push, AsDirected, PRN LR 1,000 mL, 1000 mL, Intravenous melatonin, 3 mg= 1 tab(s), Oral, qHS, PRN melatonin, 3 mg= 1 tab(s), Oral, qHS, PRN Protonix IV Push, 40 mg, IV Push, BID Zofran, 4 mg= 2 mL, IV Push, q4h, PRN Home Activize, Not taking Factor 5 Tranont Enzymes, Not taking Generation 50+, Not taking Heart Duo, Not taking Munogen, Not taking powercocktail, Not taking Restorate, Not taking Allergies No Known Medication Allergies Social History Alcohol Use: Never., 01/25/2024 Substance Abuse Use: Never., 01/25/2024 Tobacco Nicotine Use: Never (less than 100 in lifetime)., 01/25/2024 Family History Health Status Family Member(s) Mother: History is unknown Father: History is unknown Grandparent: History is unknown Immunizations No qualifying data available. Digitally Signed by DIONNA BLUNT MD on 04/02/2024 12:04 PM [facility] 04-01-2024 History and physical note Date of Service 04/01/24 Chief Complaint Vomiting History of Present Illness 48-year-old female presents as a transfer from ED for vomiting. History is obtained by my colleague who accepted the patient, patient, chart review. Patient had 2 episodes of vomiting with the last one midnight prior to arrival. Described by family member as a lot. She takes natural supplements but no NSAIDs. No prior similar events. No changes in bowel patterns. She denies any pain. Course at : BMP showed glucose 144, BUN 21. Creatinine 0.6. CBC shows hemoglobin 8.9. Normal platelets and white count. LFTs showed albumin 2.9 Troponin normal. Prior CBC on 02/10/2024 showed hemoglobin 10.6. CXR showed no acute disease. CT abdomen pelvis showed proximal duodenum wall thickening and indistinct appearance given history of hematemesis concerning for PUD. US abdomen showed diffuse hepatocellular disease and slight nodularity versus artifact. Physical Exam Vitals and Measurements T: 37.3 C (Oral) HR: 84 (Monitored) RR: 16 BP: 109/65 SpO2: 100% HT: 157 cm WT: 74.4 kg BMI: 30.18 Weight Dosing Weight: 74.4 kg (04/01/24) GA: Alert and oriented x3, no acute distress Abd: Not distended HEENT: NCAT, sclera anicteric, oral mucosa moist Pulmonary: No tachypnea or use of accessory respiratory muscles. MSK: No gross deformities Cardiovascular: Not tachycardic Skin: Warm and dry Neuro: Spontaneous movement of all extremities, cranial nerves II through XII grossly normal Psychiatric: Thought content, associations, attention are all normal. Assessment/Plan Acute GI bleed. Patient presenting with hematemesis, 2 episodes of vomiting last night. Hemoglobin has dropped by 1.7 since January. She is admitted for evaluation of GI bleed. CT showing concern for peptic ulcers. -IV PPI twice daily -GI consult -IV fluids -N.p.o. -Discontinue anticoagulant/antiplatelet medications the patient is taking Anemia. Hemoglobin 8.9. Currently asymptomatic. Will transfuse if hemoglobin drops less than 7. Recheck hemoglobin now Supplement use. Recommend discontinuation of patient's home supplements as there are actual contents and effects are not well-known. This note was created using voice dictation software. In the process of covering a busy hospitalist service including 2 hospitals, some typographical errors may occur though attempts are made made to correct these. DVT prophylaxis: SCDs Medications not yet verified. Will address additional chronic medical problems when verified. Problem List/Past Medical History Ongoing No chronic problems Procedure/Surgical History delivery Medications Home Medications (7) Active Activize Factor 5 Tranont Enzymes Generation 50+ Heart Duo Munogen powercocktail Restorate Allergies No Known Medication Allergies Social History Alcohol Use: Never., 01/25/2024 Substance Abuse Use: Never., 01/25/2024 Tobacco Nicotine Use: Never (less than 100 in lifetime)., 01/25/2024 Family History Health Status Family Member(s) Mother: History is unknown Father: History is unknown Grandparent: History is unknown Immunizations No qualifying data available. Code Status No qualifying data available. Digitally Signed by WINSOME BLAKELY MD on 04/01/2024 07:36 PM [facility] 04-01-2024 History and physical note Date of Service 04/01/24 Chief Complaint Vomiting History of Present Illness 48-year-old female presents as a transfer from ED for vomiting. History is obtained by my colleague who accepted the patient, patient, chart review. Patient had 2 episodes of vomiting with the last one midnight prior to arrival. Described by family member as a lot. She takes natural supplements but no NSAIDs. No prior similar events. No changes in bowel patterns. She denies any pain. Course at : BMP showed glucose 144, BUN 21. Creatinine 0.6. CBC shows hemoglobin 8.9. Normal platelets and white count. LFTs showed albumin 2.9 Troponin normal. Prior CBC on 02/10/2024 showed hemoglobin 10.6. CXR showed no acute disease. CT abdomen pelvis showed proximal duodenum wall thickening and indistinct appearance given history of hematemesis concerning for PUD. US abdomen showed diffuse hepatocellular disease and slight nodularity versus artifact. Physical Exam Vitals and Measurements T: 37.3 C (Oral) HR: 84 (Monitored) RR: 16 BP: 109/65 SpO2: 100% HT: 157 cm WT: 74.4 kg BMI: 30.18 Weight Dosing Weight: 74.4 kg (04/01/24) GA: Alert and oriented x3, no acute distress Abd: Not distended HEENT: NCAT, sclera anicteric, oral mucosa moist Pulmonary: No tachypnea or use of accessory respiratory muscles. MSK: No gross deformities Cardiovascular: Not tachycardic Skin: Warm and dry Neuro: Spontaneous movement of all extremities, cranial nerves II through XII grossly normal Psychiatric: Thought content, associations, attention are all normal. Assessment/Plan Acute GI bleed. Patient presenting with hematemesis, 2 episodes of vomiting last night. Hemoglobin has dropped by 1.7 since January. She is admitted for evaluation of GI bleed. CT showing concern for peptic ulcers. -IV PPI twice daily -GI consult -IV fluids -N.p.o. -Discontinue anticoagulant/antiplatelet medications the patient is taking Anemia. Hemoglobin 8.9. Currently asymptomatic. Will transfuse if hemoglobin drops less than 7. Recheck hemoglobin now Supplement use. Recommend discontinuation of patient's home supplements as there are actual contents and effects are not well-known. This note was created using voice dictation software. In the process of covering a busy hospitalist service including 2 hospitals, some typographical errors may occur though attempts are made made to correct these. DVT prophylaxis: SCDs Medications not yet verified. Will address additional chronic medical problems when verified. Problem List/Past Medical History Ongoing No chronic problems Procedure/Surgical History delivery Medications Home Medications (7) Active Activize Factor 5 Tranont Enzymes Generation 50+ Heart Duo Munogen powercocktail Restorate Allergies No Known Medication Allergies Social History Alcohol Use: Never., 01/25/2024 Substance Abuse Use: Never., 01/25/2024 Tobacco Nicotine Use: Never (less than 100 in lifetime)., 01/25/2024 Family History Health Status Family Member(s) Mother: History is unknown Father: History is unknown Grandparent: History is unknown Immunizations No qualifying data available. Code Status No qualifying data available. Digitally Signed by WINSOME BLAKELY MD on 04/01/2024 07:36 PM [facility] 04-01-2024 Evaluation + Plan note Extrac belen from: Title:History and Physical Author:TATIANA BLAKELY MD Date:04/01/24 Acute GI bleed. Patient pres enting with hematemesis, 2 episodes of vomiting last night. Hemoglobin has dropped by 1.7 since January. She is admitted for evaluation of GI bleed. CT showing concern for peptic ulcers. -IV PPI twice daily -GI consult -IV fluids -N.p.o. -Discontinue anticoagulant/antiplatelet medications the patient is taking Anemia. Hemoglobin 8.9. Currently asymptomatic. Will transfuse if hemoglobin drops less than 7. Recheck hemoglobin now Supplement use. Recommend discontinuation of patient's home supplements as there are actual contents and effects are not well-known. This note was created using voice dictation software. In the process of covering a busy hospitalist service including 2 hospitals, some typographical errors may occur though attempts are made made to correct these. DVT prophylaxis: SCDs Medications not yet verified. Will address additional chronic medical problems when verified. Addendum by WINSOME BLAKELY MD on April 01, 2024 21:09:13 EDT Recheck hemoglobin dropped from 8.9 to 7.4. Ordered 1 unit PRBCs with H&H to follow. Vitals stable and patient is asymptomatic. [facility] Evaluation noteNo assessment information available [facility] Work Phone: Evaluation note* Diagnosis Onset Date Resolution Status Admit Date Venous insufficiency acute Octo 2024 8:41am [facility] Work Phone: Hospital course Narrative No data available for this section [facility] Reason for referral (narrative)No reason for referral information [facility] Work Phone: Summary Purpose Family History No Family History Records Found Relationship Condition Age at Onset Recorded Date/T smooth Not Specified Cerebrovascular accident (CVA) Unknown Advance Directives No Advanced Directives Records FoundNo Advanced Directives Records FoundNo Advanced Directives Records FoundNo Advanced Directives Records Found Chief Complaint and Reason for Visit Chief Complaint Admit Date PVD, PAIN BILATERAL LEGS June 19 7:53am Chief Complaint Admit Date PVD, PAIN BILATERAL LEGS June 19 7:53am BILATERAL LEG PAIN June 19, 2025 8: 16am Peripheral vascular disease/Rt Leg Pain August 09, 2025 8:41am Reason for Visit Admit Date Venous insufficiency August 09, 2025 8 :41am Additional Source Comments INFORMATION SOURCE (unrecogn ized section and content) DATE CREATED AUTHOR 04/02/2024 [facility] DATE CREATED AUTHOR AUTHOR'S ORGANIZ ATION 04/15/2024 [facility] DATE CREATED AUTHOR AUTHOR'S ORGANIZ ATION 05/22/[address] [facility] ([place]) DATE CREATED AUTHOR AUTHOR'S ORGANIZ ATION 09/08/2025 [facility] Patient Care team informatio n (unrecognized section and content) Team Status: Active Member Role/Relationship Status Dates Dr. Tuan Nelson MD Primary Care Provider Active Team Status: Inactive Member Role/Relationship Status Dates Dr. Evert Beard DPM Attending Provider Active Start: June 19, 2025 End: June 19, 2025 Dr. Evert Beard DPM Referring Provider Active Start: June 19, 2025 End: June 19, 2025 Dr. Tuan Nelson MD Primary Care Provider Active Start: June 19, 2025 End: June 19, 2025 Team Status: Active Member Role/Relationship Status Dates Dr. Tuan Nelson MD Primary care physician Active Team Status: Inactive Member Role/Relationship Status Dates Dr. Evert Beard DPM Attending physician Active Start: June 19, 2025 End: June 19, 2025 Dr. Evert Beard DPM Referring Provider Active Start: June 19, 2025 End: June 19, 2025 Dr. Tuan Nelson MD Primary care physician Active Start: June 19, 2025 End: June 19, 2025 Team Status: Active Member Role/Relationship Status Dates Dr. Pedro Gabriel MD Attending physician Active Start: June 19, 2025 Dr. Evert Beard DPM Referring Provider Active Start: June 19, 2025 Team Status: Inactive Member Role/Relationship Status Dates Dr. Tuan Nelson MD Primary care physician Active Start: August 09, 2025 End: August 09, 2025 Dr. Tuan Nelson MD Referring Provider Active Start: August 09, 2025 End: August 09, 2025 CARLOS Dyer Attending physician Active Sta rt: August 09, 2025 End: August 09, 2025 Goals (unrecognized section and content) Goals may be documented in a n alternate section FOR RECORDS PERTAINING TO PATIENTS WHO ARE OR HAVE BEEN ENROLLED IN A CHEMICAL DEPENDENCY/SUBSTANCEABUSE PROGRAM, SOME INFORMATION MAY BE OMITTED. This clinical summary was aggregated from multiple sources. Caution should be exercised in using it in the provision of clinical care. This summary normalizes information from multiple sources, and as a consequence, information in this document may materially change the coding, format and clinical context of patient data. In addition, data may be omitted in some cases. CLINICAL DECISIONS SHOULD BE BASED ON THE PRIMARY CLINICAL RECORDS. [facility] [employer] [facility]. provides no warranty or guarantee of the accuracy or completeness of information in this document.
--- NOTE | 2025-10-11 07:40 | HP.PCM_ITS ---
HPI - General HPI Narrative FREEMAN HAYS, is a 49 F who presents with venous insufficiency and ulceration of the left medial ankle. Has had several wounds in similar location in the past. Currently wound is improving but not yet resolved. [facility] Medical History Ulcer (~04/2024) PVD (peripheral vascular disease) Pain in right leg Pain in left leg Home Medications ?Medication ?Instructions ?Recorded ?Last Taken ?Type Saccharomyces boulardii 250 mg 250 mg PO BID 07/23/25 Unknown History capsule (Daily Probiotic (S. boulardii)) coenzyme Q10 200 mg/gram oral mg PO 07/23/25 Unknown H istory powder (H2Q CoQ10) digestive enzymes 1 cap PO QDAY 07/23/25 Unkno wn History multivitamin 1 tab PO QAM 07/23/25 Unknow n History multivitamin with minerals (One 1 tab PO ONCE 07/23/25 Unknown History Daily Plus Minerals tablet) nutraview PO 07/23/25 Unknown History omega-3 fatty acids 1,000 mg 1,000 mg PO QDAY 07/23/25 Unknown History capsule Allergy/AdvReac Type Severity Reaction Status Date / Time No Known Allergies Allergy Verified 08/09/25 08:55 Family History Other CVA (cerebral vascular accident) Social History Smoking Status: Never smoker ROS Constitutional Constitutional: Denies chills, fever(s), frequent falls, lethargy or weakness Eyes Eyes: Denies blind spots, change in vision or loss of vision ENT HEENT: Denies bleeding gums, hoarseness or sore throat Cardiovascular Cardiovascular: Denies abdominal pain, bluish discoloration of hand/feet, chest pain with activity, claudication, cold extremities, cyanosis, dyspnea on exertion, erythema on extremities, irregular heart rhythm, leg edema, leg ulcers, numbness in extremities or weakness in extremities Respiratory/Chest Respiratory/Chest: Denies cough, excessive phlegm production, shortness of breath at rest, shortness of breath with exertion or wheezing Gastrointestinal Gastrointestinal: Denies anorexia, change in stool character, constipation, diarrhea, melena or rectal bleeding Genitourinary Genitourinary: Denies dysuria or hematuria Musculoskeletal Musculoskeletal: Denies abnormal gait Integumentary Integumentary: Reports other Details: ; Denies erythema, non-healing lesions or wounds Neurologic Neurologic: Denies abnormal speech, focal weakness, headache(s), loss of vision, numbness, paresthesias or sensory deficit Hematologic/Lymphatic Hematologic/Lymphatic: Denies easy bleeding, easy bruising or lymphadenopathy Vital Signs Vital Signs Vital Signs: Weight Weight: 170 lb Body Mass Index (BMI) 31.1 Physical Exam Const alert, oriented x3, no apparent distress and healthy appearing General Appearance: cooperative; Negative for combative or lethargic Orientation / Consciousness: awake Exam Limitations: no limitations HEENT Head and Scalp: normocephalic and atraumatic Eyes EOMs intact bilaterally General Eye: normal appearance of both eyes Neck full ROM General: trachea midline Lymph Lymphatic: Negative for no lymphadenopathy noted Resp normal respiratory effort and no use of accessory muscles Effort and Inspection: Negative for labored, stridor or audible wheezes Cardio regular rate and regular rhythm Back/Spine Cervical Spine: cervical ROM normal Extremity full ROM, normal capillary refill and no clubbing, cyanosis or edema Neuro oriented x3, CN's II-XII intact bilaterally, no focal motor deficits and no sensory deficits noted Psych thought process normal, cooperative, affect normal, speech normal and activity/motor behavior normal Assessment & Plan Assessment/Plan (1) Ulcer of extremity due to chronic venous insufficiency: PLAN: -left GSV chemical ablation
--- NOTE | 2025-10-11 14:01 | OP.PCM_ITS ---
Operative Report (Standard) Operative Information Date of Procedure: 10/11/25 Pre-Operative Diagnosis: Venous insufficiency with ulceration of the left medial calf Post-Operative Diagnosis: Same Surgery/Procedure Performed: Chemical ablation left great saphenous vein master coastwise yacht: No Type of Anesthesia: Local Procedure Start Time: 08:15 Procedure Stop Time: 08:40 Select all DRAINS/GRAFTS/IMPLANTS that apply: None Estimated Blood Loss: 1 Specimen collected: No Description of surgery: HPI: Patient is a 49-year-old female with recurrent venous ulceration of the left medial calf and insufficiency of the great saphenous vein. She presents now for chemical ablation. Description of procedure: Upon obtaining informed consent and verification correct patient procedure site the patient was taken to the [facility] where she was positioned prepped and draped in usual sterile fashion. Timeout was performed and the left great saphenous vein evaluated with ultrasound from the saphenofemoral junction to the mid calf. In the proximal calf the vessel significantly reduced in diameter in this location to large varicosities were visualized which went directly to the wound bed. Given the vessel size plan was to access at the most inferior aspect the larger caliber vessel and ablated from the saphenofemoral junction to the origin of the varicosities. Skin overlying the vessel this location was anesthetized 1% lidocaine the vessel accessed with a micropuncture needle wire. This was exchanged for the ablation sheath which was advanced over the wire without resistance. The chemical ablation delivery guide was then advanced through the sheath under ultrasound guidance to the saphenofemoral junction. The dilator was withdrawn and the glue delivery catheter was then advanced to the guide and positioned appropriate distance inferior to the saphenofemoral junction. Began at this location we deposited glue along the great saphenous vein treatment zone down to the sheath. Upon completion the guide and catheter were removed followed by sheath removal and manual pressure to hemostasis was observed. The saphenofemoral junction was evaluated at the completion of the procedure and found to be patent with no evidence of glue or thrombus into the deep system. Dry sterile dressings and Randal wrap's were then applied the patient was taken to the recovery with plan discharge to home. Surgical Findings: See above Complications Complications: No
== END 2025-10-11 09:30 | disposition home or self-care (01) ==
PROVIDERS: PCP Family Medicine; Referring Provider Surgery Trauma Surgery; Visit Provider Surgery Trauma Surgery
DX: I87.2 Venous insufficiency (chronic) (peripheral) (principal); L97.229 Non-pressure chronic ulcer of left calf with unspecified severity; I83.022 Varicose veins of left lower extremity with ulcer of calf
CPT/HCPCS: 36482; C1894

== ENCOUNTER → 2025-10-15 | Outpatient (CLI) | payer SELFPAY, OTHER ==
--- NOTE | 2025-10-15 09:19 | VDLE_ITS ---
Reason For Study Reason For Study: S/P Ablation RIGHT LEFT CFV is compressible, spontaneous, phasic, competent CFV is compressible, spontaneous, phasic, competent, and demonstrates normal augmentation. and demonstrates normal augmentation. Procedure FV is compressible, spontaneous, phasic, competent This is a venous duplex using B-mode, color flow and and demonstrates normal augmentation. spectral Doppler. POP V is compressible, spontaneous, phasic, competent Exam performed in department. and demonstrates normal augmentation. A preliminary report was called and/or faxed to T/P Trunk is compressible. Rita. PTV is compressible. LT PerV is compressible. GSV is occluded from junction to distal thigh s/p ablation 10/11/2025. Thrombus extend 0.45 cm into the CFV from the SFJ. VL/Venous Duplex US, Unilateral Interpretation Summary Acute deep vein thrombosis noted in the left saphenofemoral junction protruding into the common femoral vein. Ordering Physician: Komal Bacon Referring Physician: Jeremiah Cedeño Performed By: Lizbeth Craig RVT
== END | disposition home or self-care (01) ==
PROVIDERS: PCP Family Medicine; Referring Provider Surgery Trauma Surgery; Visit Provider Physician Assistant
DX: I87.2 Venous insufficiency (chronic) (peripheral) (principal); L98.499 Non-pressure chronic ulcer of skin of other sites with unspecified severity
CPT/HCPCS: 93971